=== PATIENT | male | born 1955 | race Two or more races ===

== ENCOUNTER 2016-05-13 13:33 | Emergency (ER) | payer OTHER ==
[~2016-05-13] VITALS: Ht 165.1 cm; Wt 61.2 kg
[~2016-05-13 13:33] MED LIST: CIPRO500 MG PO; IBUPROFEN800 MG ORAL; MECLIZINE HCL25 MG ORAL; NKM; NORCO 5-325 TA1 EACH ORAL; PERCOCET 5-3251 EACH ORAL; PROMETHAZINE-C118 M1 ORAL; PSEUDOEPHEDRINE30 MG PO; TAMIFLU75 MG ORAL; TRAMADOL HCL50 MG ORAL
--- NOTE | 2016-05-13 14:35 | Emergency Room Report ---
History of Present Illness General Chief Complaint: Back Pain-No Injury Source: Patient (KARENKANDIS) Present Illness HPI 61 y/o male c/o rigth sided shoulder and neck pain x 3 days. States he woke up from his sleep with right sided shoulder and neck pain. States pain is worse with movement and better with rest. States he was worked up at [facility] and after imaging and labs was told everything was negative and to f/u with PCP with an Rx for Ibuprofen 600mg which he has taken w/o relief. States pain is currently 7/10 and denies trauma and states he thinks he slept on it wrong.. (KANDIS JONES.Jarek) Allergies: Coded Allergies: No Known Allergies (Unverified , 05/13/13) Patient History Limited by: language barrier Past Medical History: see triage record Past Surgical History: none Reviewed Nursing Documentation: PMH: Agreed, PSxH: Agreed (KANDIS JONES) Nursing Documentation-PMH Past Medical History: No Stated History (KANDIS JONES) Review of Systems All Other Systems: negative except mentioned in HPI (KANDIS JONES.Jarek) Physical Exam Vital Signs Date Time Temp Pulse Resp B/P Pulse Ox O2 Delivery O2 Flow Rate FiO2 05/13/16 14:16 97.9 84 14 124/100 96 Room Air Sp02 EP Interpretation: reviewed, normal General Appearance: no apparent distress, alert, GCS 15, non-toxic Head: normocephalic, atraumatic Eyes: bilateral eye PERRL, bilateral eye normal inspection ENT: hearing grossly normal, normal pharynx, no angioedema, normal voice Neck: full range of motion, supple/symm/no masses Respiratory: chest non-tender, lungs clear, normal breath sounds, speaking full sentences Cardiovascular #1: regular rate, rhythm, no edema Cardiovascular #2: 2+ radial (R), 2+ radial (L) Musculoskeletal: back normal, gait/station normal, normal range of motion, tender - right sided perispinal and shoulder tenderness. Neg tinels, Neg phalens , Neg Neers, Neg sulcus, Neg Biceptial groove Neurologic: alert, oriented x3, responsive, motor strength/tone normal, DTRs symmetric, sensory intact, speech normal Psychiatric: judgement/insight normal, memory normal, mood/affect normal, no suicidal/homicidal ideation Skin: normal color, no rash, warm/dry, well hydrated Lymphatic: no adenopathy (KANDIS JONES P.A.) Medical Decision Making PA Attestation Dr. Gillette is my supervising physician with whom patient management has been discussed with. (KANDIS JONES P.A.) Diagnostic Impression: Primary Impression: Muscle spasm of back Additional Impression: Back pain Qualified Codes: M54.6 - Pain in thoracic spine ER Course Pt. presents to the ED c/o thoracic back pain Ddx considered but are not limited to muscle spasm, trauma, muscle strain Vital signs: are WNL, pt. is afebrile H&PE are most consistent with muscle spasm ORDERS: none required at this time, the diagnosis is clinical ED INTERVENTIONS: none required at this time. DISCHARGE: At this time pt. is stable for d/c to home. Will provide printed patient care instructions, and any necessary prescriptions. Care plan and follow up instructions have been discussed with the patient prior to discharge. (KANDIS JONES P.A.) Last Vital Signs Date Time Temp Pulse Resp B/P Pulse Ox O2 Delivery O2 Flow Rate FiO2 05/13/16 14:16 97.9 84 14 124/100 96 Room Air (KANDIS JONES P.A.) Last Vital Signs Date Time Temp Pulse Resp B/P Pulse Ox O2 Delivery O2 Flow Rate FiO2 05/13/16 14:45 97.9 14 124/100 96 Room Air 05/13/16 14:16 84 (Jacques Gillette M.D.) Disposition: HOME, SELF-CARE Condition: Stable Scripts Methocarbamol* (ROBAXIN-750*) 750 Mg Tablet 750 MG PO TID, #30 TAB 0 Refills Prov: SABHITESH OSUNAEEM P.A. 05/13/16 Acetaminophen With Codeine (T#4) (TYLENOL #4 TAB*) Y Tab 1 TAB ORAL Q8H Y for For Pain, #10 TAB 0 Refills Prov: SABRYTAMEEM P.A. 05/13/16 HITESH JONESEEM P.A. May 13, 2016 14:35 Jacques Gillette M.D. May 17, 2016 06:55
[2016-05-13] MEDS ORDERED: ACETAMINOPHEN-1 EAC2 ORAL (14:37)
[2016-05-13] MEDS ORDERED: ROBAXIN-750750 MG PO (14:37)
[2016-05-13 14:45] VITALS: BP 124/100
== END 2016-05-13 14:45 | disposition home or self-care (01) ==
LOC: EMR 14:39
DX: M62.830 Muscle spasm of back (principal); M54.9 Dorsalgia, unspecified
CPT/HCPCS: 99284

== ENCOUNTER 2016-05-29 14:36 | Emergency (ER) | payer OTHER ==
[~2016-05-29] VITALS: Ht 165.1 cm; Wt 61.2 kg
[~2016-05-29 14:36] MED LIST changes: +ACETAMINOPHEN-1 EAC2 ORAL; +ROBAXIN-750750 MG PO
[2016-05-29 15:10] VITALS: BP 127/78
[2016-05-29 15:25] VITALS: BP 127/78
--- NOTE | 2016-05-29 15:35 | Emergency Room Report ---
History of Present Illness General Chief Complaint: Male Urogenital Problems Source: Patient Present Illness [facility] The patient is a 61-year-old male presenting for erectile dysfunction. The patient states that he has been essentially active with a new female partner but has been unable to obtain an erection. The patient states that he does awake some mornings with interaction and states this may be due to anxiety. The patient denies any pain and denies any other symptoms including dysuria, hematuria, nausea, vomiting, fever, chills, abdominal pain Allergies: Coded Allergies: No Known Allergies (Unverified , 05/13/13) Patient History Past Medical History: see triage record Pertinent Family History: none Reviewed Nursing Documentation: PMH: Agreed, PSxH: Agreed Nursing Documentation-PMH Past Medical History: No History, Except For Review of Systems All Other Systems: negative except mentioned in HPI Physical Exam Vital Signs Date Time Temp Pulse Resp B/P Pulse Ox O2 Delivery O2 Flow Rate FiO2 05/29/16 14:49 97.9 86 18 127/78 98 Room Air Sp02 EP Interpretation: reviewed, normal General Appearance: no apparent distress, alert, GCS 15, non-toxic Head: normocephalic, atraumatic Eyes: bilateral eye PERRL, bilateral eye normal inspection ENT: hearing grossly normal, normal pharynx, no angioedema, normal voice Neck: full range of motion, supple/symm/no masses Respiratory: chest non-tender, lungs clear, normal breath sounds, speaking full sentences Cardiovascular #1: regular rate, rhythm, no edema Gastrointestinal: normal bowel sounds, non tender, soft, non-distended, no guarding, no rebound Genitourinary: normal inspection, no CVA tenderness, penis normal, scrotum normal Musculoskeletal: back normal, gait/station normal, normal range of motion, non- tender Neurologic: alert, oriented x3, responsive, motor strength/tone normal, sensory intact, speech normal Psychiatric: judgement/insight normal, memory normal, mood/affect normal, no suicidal/homicidal ideation Skin: normal color, no rash, warm/dry, well hydrated Lymphatic: no adenopathy Medical Decision Making PA Attestation Dr. Heck is my supervising physician. Patient management was discussed with my supervising physician Diagnostic Impression: Primary Impression: Erectile Dysfunction ER Course The patient is a 61-year-old male presenting for erectile dysfunction. Differential diagnosis considered: Erectile dysfunction, anxiety, depression, medication side effects Physical exam: Vitals within normal limits. No apparent distress. Abdomen soft and nontender. No CVA tenderness. Penis and scrotum unremarkable. The patient is advised that he needs to undergo baseline testing and followup with primary care physician who will be able to have regular followups with the patient. The patient has never taken any erectile dysfunction medications and the patient was advised these medications should not be started by the emergency department. ER precautions are given Last Vital Signs Date Time Temp Pulse Resp B/P Pulse Ox O2 Delivery O2 Flow Rate FiO2 05/29/16 14:49 97.9 86 18 127/78 98 Room Air Disposition: HOME, SELF-CARE Condition: Improved Referrals: NON PHYSICIAN (PCP) Patient Instructions: Erectile Dysfunction Additional Instructions: I discussed my findings with the patient. All questions and concerns have been answered. Treatment and medication compliance have been addressed. I advised the patient that they need to follow up with PMD in 3-5 days. Return to ED if symptoms worsen, new symptoms arise, or if needed for any reason. Patient verbalized understanding of discharge instructions. KAYLEE LARSON May 29, 2016 15:35
== END 2016-05-29 15:27 | disposition home or self-care (01) ==
LOC: EMR 15:14
DX: N52.9 Male erectile dysfunction, unspecified (principal)
CPT/HCPCS: 99282

== ENCOUNTER 2016-08-04 17:26 | Emergency (ER) | payer OTHER ==
[~2016-08-04] VITALS: Ht 165.1 cm; Wt 65.8 kg
[2016-08-04] MEDS ORDERED: AMOXICILLIN500 MG ORAL (18:05)
[2016-08-04 18:27] VITALS: BP 108/70
--- NOTE | 2016-08-09 07:10 | Emergency Room Report ---
History of Present Illness General Chief Complaint: Flu Like Symptoms Source: Patient Present Illness HPI 61-year-old male presents ED for evaluation. States for last 2 days patient has had bodyaches with cough and chills. Cough is productive with greenish sputum. Notes dull aches, 5/10, nonradiating. Denies sick contacts or recent travel. No other aggravating or relieving factors. Denies any other associated symptoms Allergies: Coded Allergies: No Known Allergies (Unverified , 05/13/13) Patient History Past Medical History: none Past Surgical History: none Pertinent Family History: none Social History: Denies: alcohol use, drug use, smoking Immunizations: UTD Reviewed Nursing Documentation: PMH: Agreed, PSxH: Agreed Nursing Documentation-PMH Past Medical History: No Stated History Review of Systems All Other Systems: negative except mentioned in HPI Physical Exam Vital Signs Date Time Temp Pulse Resp B/P Pulse Ox O2 Delivery O2 Flow Rate FiO2 08/04/16 17:41 98.4 65 12 116/75 97 Room Air Sp02 EP Interpretation: reviewed, normal General Appearance: no apparent distress, alert, GCS 15, non-toxic Head: normocephalic, atraumatic Eyes: bilateral eye PERRL, bilateral eye normal inspection ENT: hearing grossly normal, normal pharynx, no angioedema, normal voice Neck: full range of motion, supple/symm/no masses Respiratory: chest non-tender, lungs clear, normal breath sounds, speaking full sentences Cardiovascular #1: regular rate, rhythm, no edema Cardiovascular #2: 2+ carotid (R), 2+ carotid (L), 2+ radial (R), 2+ radial (L) , 2+ dorsalis pedis (R), 2+ dorsalis pedis (L) Gastrointestinal: normal bowel sounds, non tender, soft, non-distended, no guarding, no rebound Rectal: deferred Genitourinary: normal inspection, no CVA tenderness Musculoskeletal: back normal, gait/station normal, normal range of motion, non- tender Neurologic: alert, oriented x3, responsive, motor strength/tone normal, sensory intact, speech normal Psychiatric: judgement/insight normal, memory normal, mood/affect normal, no suicidal/homicidal ideation Reflexes: 3+ bicep (R), 3+ bicep (L), 3+ tricep (R), 3+ tricep (L), 3+ knee (R) , 3+ knee (L) Skin: normal color, no rash, warm/dry, well hydrated Lymphatic: no adenopathy Medical Decision Making Diagnostic Impression: Primary Impression: Atypical pneumonia ER Course Hospital Course 61-year-old male presents to ED complaining of productive cough, body aches and chills Differential diagnoses include: URI, pharyngitis, otitis media, asthma Clinical course Patient placed on stretcher. After initial history, physical exam reveals a young male in no acute distress. Bilateral TM unremarkable. No pharyngeal erythema. No tonsillar exudates. No lymphadenopathy. lungs clear. abdomen soft. Clinical findings consistent with atypical pneumonia. We will treat with antibiotics Diagnosis - atypical pneumonia Stable and discharged home with Rx Amoxicillin. Instructed to followup with PMD. Return to ED if symptoms recur or worsen Last Vital Signs Date Time Temp Pulse Resp B/P Pulse Ox O2 Delivery O2 Flow Rate FiO2 08/04/16 18:27 65 16 108/70 100 Room Air 08/04/16 17:41 98.4 Status: improved Disposition: HOME, SELF-CARE Condition: Stable Scripts Amoxicillin* (AMOXIL*) 500 Mg Capsule 500 MG ORAL THREE TIMES A DAY, #21 CAP Prov: CARMEN MADRID M.D. 08/04/16 Referrals: EMPLOYEE [facility],REFERRIN (PCP) Patient Instructions: Community-Acquired Pneumonia, Adult, [id number] CARMEN MADRID M.D. Aug 09, 2016 07:10
== END 2016-08-04 18:45 | disposition home or self-care (01) ==
LOC: EMR 18:29
DX: J18.9 Pneumonia, unspecified organism (principal)
CPT/HCPCS: 99283

== ENCOUNTER 2016-12-13 14:41 | Emergency (ER) | payer OTHER ==
[~2016-12-13] VITALS: Ht 165.1 cm; Wt 65.8 kg
[~2016-12-13 14:41] MED LIST changes: +AMOXICILLIN500 MG ORAL
[2016-12-13 14:44] VITALS: BP 103/67
--- NOTE | 2016-12-13 14:54 | Emergency Room Report ---
History of Present Illness General Chief Complaint: Pain Source: Patient Present Illness HPI The patient is a 61-year-old male presenting for total body pain. He states that this has been occurring for the past 2 weeks. he was seen by his primary doctor one week prior and states that he had a physical including blood work which was all normal. His doctor prescribed Motrin which mildly helped with the pain. Pain is described as an 8/10 dull ache it is worse with movements. He denies any numbness or tingling. He does admit to burning sensation in the mid chest which occurs after eating or drinking soda. He denies other symptoms including shortness of breath, rash, nausea, vomiting, fever, diarrhea, blurred vision Allergies: Coded Allergies: No Known Allergies (Unverified , 05/13/13) Patient History Past Medical History: see triage record Pertinent Family History: none Reviewed Nursing Documentation: PMH: Agreed, PSxH: Agreed Nursing Documentation-PMH Past Medical History: No History, Except For Review of Systems All Other Systems: negative except mentioned in HPI Physical Exam Vital Signs Date Time Temp Pulse Resp B/P (MAP) Pulse Ox O2 Delivery O2 Flow Rate FiO2 12/13/16 14:44 97.5 75 18 103/67 95 Room Air Sp02 EP Interpretation: reviewed, normal General Appearance: no apparent distress, alert, GCS 15, non-toxic Head: normocephalic, atraumatic Eyes: bilateral eye normal inspection, bilateral eye PERRL ENT: hearing grossly normal, normal pharynx, no angioedema, normal voice Neck: full range of motion, supple/symm/no masses Respiratory: chest non-tender, lungs clear, normal breath sounds, speaking full sentences Musculoskeletal: back normal, gait/station normal, normal range of motion, non- tender Neurologic: alert, oriented x3, responsive, motor strength/tone normal, sensory intact, speech normal Psychiatric: judgement/insight normal, memory normal, mood/affect normal, no suicidal/homicidal ideation, anxious Skin: normal color, no rash, warm/dry, well hydrated Medical Decision Making PA Attestation Dr. Gillette is my supervising physician. Patient management was discussed with my supervising physician ER Course The patient is a 61-year-old male presenting for total body pain Differential diagnosis considered not limited to: Anxiety, chronic pain, arthritis, narcotic seeking behavior, among others Physical exam: The patient is mildly anxious. Otherwise unremarkable. There is diffuse tenderness to palpation over both muscle and bone. No obvious deformity. No ecchymosis. No skin changes. Normal gait The patient is given pain medication and zantac and feels better. CURES report only shows recent prescription for alprazolam. He will be NC'ed home with pain medication and PPI. ER precautions given and he will FU with PMD Last Vital Signs Date Time Temp Pulse Resp B/P (MAP) Pulse Ox O2 Delivery O2 Flow Rate FiO2 12/13/16 14:44 97.5 75 18 103/67 95 Room Air Status: improved Disposition: HOME, SELF-CARE Condition: Improved Scripts Omeprazole (OMEPRAZOLE) 20 Mg Capsule. 20 MG ORAL DAILY, #30 CAP Prov: KAYLEE LARSON 12/13/16 Tramadol Hcl* (ULTRAM*) 50 Mg Tablet 50 MG ORAL Q6H Y for For Pain, #10 TAB 0 Refills Prov: KAYLEE LARSON 12/13/16 KAYLEE LARSON Dec 13, 2016 14:54
[2016-12-13] MEDS ORDERED: Norco 5mg/325mg tab ORAL ONE (15:15)
[2016-12-13] MEDS ORDERED: OMEPRAZOLE20 M2 ORAL (15:35)
[2016-12-13] MEDS ORDERED: TRAMADOL HCL50 MG ORAL (15:35)
[2016-12-13 15:40] VITALS: BP 111/61
== END 2016-12-13 15:40 | disposition home or self-care (01) ==
LOC: EMR 14:57
DX: R52 Pain, unspecified (principal)
CPT/HCPCS: 99284

== ENCOUNTER 2016-12-19 09:20 | Emergency (ER) | payer OTHER ==
[~2016-12-19] VITALS: Ht 165.1 cm; Wt 64.9 kg
[~2016-12-19 09:20] MED LIST changes: +OMEPRAZOLE20 M2 ORAL
[2016-12-19] MEDS ORDERED: DIPHENHYDRAMINE25 M1 ORAL (10:01)
[2016-12-19] MEDS ORDERED: PERMETHRIN60 GM TOPIC (10:01)
[2016-12-19 10:07] VITALS: BP 104/69
[2016-12-19 10:09] VITALS: BP 104/69
--- NOTE | 2016-12-19 16:48 | Emergency Room Report ---
History of Present Illness General Chief Complaint: Skin Rash/Abscess Source: Patient Present Illness HPI 61year-old male presents ED complaining of rash to his hands and feet. Has been there for a "long time". Patient states it is very itchy. Denies any pain. States he had it once before and was treated. Does not know the diagnosis. Denies any sick contacts or recent travel. No other aggravating relieving factors. Denies any other associated symptoms Allergies: Coded Allergies: No Known Allergies (Unverified , 05/13/13) Patient History Past Medical History: none Past Surgical History: none Pertinent Family History: none Social History: Denies: smoking, alcohol use, drug use Immunizations: UTD Reviewed Nursing Documentation: PMH: Agreed, PSxH: Agreed Nursing Documentation-PMH Past Medical History: No History, Except For Review of Systems All Other Systems: negative except mentioned in HPI Physical Exam Vital Signs Date Time Temp Pulse Resp B/P (MAP) Pulse Ox O2 Delivery O2 Flow Rate FiO2 12/19/16 09:40 98.1 95 15 104/69 98 Room Air Sp02 EP Interpretation: reviewed, normal General Appearance: no apparent distress, alert, GCS 15, non-toxic Head: normocephalic Eyes: bilateral eye normal inspection, bilateral eye PERRL ENT: normal ENT inspection Neck: normal inspection Respiratory: normal inspection Cardiovascular #1: normal inspection Gastrointestinal: normal inspection Rectal: deferred Genitourinary: no CVA tenderness Musculoskeletal: normal inspection Neurologic: alert, oriented x3, responsive, motor strength/tone normal, sensory intact, speech normal Psychiatric: normal inspection Skin: rash - multiple linear excoriations noted to hands/feet. noted between fingers and toes Lymphatic: normal inspection Medical Decision Making Diagnostic Impression: Primary Impression: Rash and other nonspecific skin eruption ER Course Hospital Course 61-year-old male presents to ED with rash to hands/feet Differential diagnoses include: Cellulitis, dermatitis, insect bite, abscess Clinical course Patient placed on stretcher. After initial history, physical exam reveals an elderly male in no acute distress. On exam there are multiple linear excoriations noted to the hands/feet. noted especially between fingers/toes. Consistent with scabies Diagnosis - rash stable and discharged to home with prescription for Permethrin. Instructed to followup with PMD. Instructed return to ED if symptoms recur or worsen Last Vital Signs Date Time Temp Pulse Resp B/P (MAP) Pulse Ox O2 Delivery O2 Flow Rate FiO2 12/19/16 10:09 98.1 96 15 104/69 98 Room Air Status: improved Disposition: HOME, SELF-CARE Condition: Stable Scripts Diphenhydramine Hcl* (DIPHENHYDRAMINE HCL*) 25 Mg Capsule 25 MG ORAL Q6H Y for Itching, #30 CAP 0 Refills Prov: CARMEN MADRID M.D. 12/19/16 Permethrin* (ELIMITE*) 60 Gm Cream..g. 1 APPLIC TOPIC ONCE, #60 GM 0 Refills Apply cream from head to toe; leave on for 8-14 hours before washing off with water; may reapply in 1 week if live mites appear. Prov: CARMEN MADRID M.D. 12/19/16 Referrals: EMPLOYEE [facility],REFERRIN (PCP) Patient Instructions: Rash, Contact Precautions, [id number] CARMEN MADRID M.D. Dec 19, 2016 16:48
== END 2016-12-19 10:11 | disposition home or self-care (01) ==
LOC: EMR 09:54
DX: R21 Rash and other nonspecific skin eruption (principal)
CPT/HCPCS: 99284

== ENCOUNTER 2017-04-09 14:39 | Emergency (ER) | payer OTHER ==
[~2017-04-09] VITALS: Ht 165.1 cm; Wt 64.9 kg
[~2017-04-09 14:39] MED LIST changes: +DIPHENHYDRAMINE25 M1 ORAL; +PERMETHRIN60 GM TOPIC
[2017-04-09] MEDS ORDERED: Sodium Chloride 500ML 500 ML IV ONE (14:57)
[2017-04-09] MEDS ORDERED: Aspirin Baby 81mg ORAL ONE (15:00)
[2017-04-09 15:39] LABS: BASOPHILS % (AUTO) 1.6 % (0.0-2.0); EOSINOPHILS % (AUTO) 0.9 % (0.0-3.0); LYMPHOCYTES % (AUTO) 34.5 % (20.0-45.0); MEAN CORPUSCULAR HEMOGLOBIN 31.8 PG (27.0-31.0); MEAN CORPUSCULAR HGB CONC 31.6 G/DL (32.0-36.0); MEAN CORPUSCULAR VOLUME 101 FL (80-99); MEAN PLATELET VOLUME 7.5 FL (6.5-10.1); MONOCYTES % (AUTO) 4.6 % (1.0-10.0); NEUTROPHILS % (AUTO) 58.4 % (45.0-75.0); PLATELET COUNT 156 K/UL (150-450)
[2017-04-09 15:52] LABS: ANION GAP 7 mmol/L (5-15); CALCIUM 7.5 MG/DL (8.5-10.1); CARBON DIOXIDE 29 MMOL/L (21-32); CHLORIDE 104 MMOL/L (98-107); GLOMERULAR FILTRATION RATE > 60 mL/min (>60); POTASSIUM 4.3 MMOL/L (3.5-5.1); SODIUM 140 MMOL/L (136-145)
--- NOTE | 2017-04-09 15:59 | Emergency Room Report ---
History of Present Illness General Chief Complaint: Chest Pain Source: Patient Present Illness HPI Patient presented for chest pain. A gradual onset of symptoms with a past 3 days. The patient had worsened pain with movement. The patient reports being a smoker. He denies any fever. He reports having a nonproductive cough.The pain was intermittent in nature. This was associated with eating primarily. The patient denied any increase in the pain with ambulation. He denies any shortness of breath or leg swelling. Patient had been followed by Dr. Fisher. He denies any current chest pain. Allergies: Coded Allergies: No Known Allergies (Unverified , 05/13/13) Patient History Past Medical History: see triage record Reviewed Nursing Documentation: PMH: Agreed, PSxH: Agreed Nursing Documentation-PMH Past Medical History: No History, Except For Review of Systems All Other Systems: negative except mentioned in HPI Physical Exam Vital Signs Date Time Temp Pulse Resp B/P (MAP) Pulse Ox O2 Delivery O2 Flow Rate FiO2 04/09/17 14:46 98.1 68 18 106/64 94 Room Air Sp02 EP Interpretation: reviewed, normal General Appearance: normal inspection, well appearing, no apparent distress, alert, GCS 15 Head: atraumatic ENT: normal ENT inspection, hearing grossly normal, normal voice Neck: normal inspection, full range of motion, supple, no bony tend Respiratory: normal inspection, lungs clear, normal breath sounds, no respiratory distress, no retraction, no wheezing Cardiovascular #1: regular rate, rhythm, no edema Gastrointestinal: normal inspection, normal bowel sounds, non tender, soft, no guarding, no hernia Genitourinary: no CVA tenderness Musculoskeletal: normal inspection, back normal, normal range of motion Neurologic: normal inspection, alert, oriented x3, responsive, container repairer III-XII nml as tested, speech normal Psychiatric: normal inspection, judgement/insight normal, mood/affect normal Skin: normal inspection, normal color, no rash Medical Decision Making Diagnostic Impression: Primary Impression: Bronchitis Additional Impression: Atypical chest pain ER Course Patient presented for chest pain.Differential diagnosis included but was not limited to acute coronary syndrome, pulmonary embolism, pneumonia, aortic dissection, shingles, pneumothorax, aortic dissection, esophageal rupture, pericarditis. Because of complexity of patient's case laboratory testing and imaging studies were ordered.EKG interpreted by me showed sinus bradycardia without acute ST or T wave changes. The patient was noted to have a negative troponin. Patient was initially given aspirin. He started on some IV fluids. The patient's chest discomfort appears to be somewhat flulike. The patient was advised primary care physician for further evaluation and outpatient stress testing. Labs Test 04/09/17 15:14 White Blood Count 7.0 K/UL (4.8-10.8) Red Blood Count 3.90 M/UL (4.70-6.10) Hemoglobin 12.4 G/DL (14.2-18.0) Hematocrit 39.2 % (42.0-52.0) Mean Corpuscular Volume 101 FL (80-99) Mean Corpuscular Hemoglobin 31.8 PG (27.0-31.0) Mean Corpuscular Hemoglobin Concent 31.6 G/DL (32.0-36.0) Red Cell Distribution Width 11.0 % (11.6-14.8) Platelet Count 156 K/UL (150-450) Mean Platelet Volume 7.5 FL (6.5-10.1) Neutrophils (%) (Auto) 58.4 % (45.0-75.0) Lymphocytes (%) (Auto) 34.5 % (20.0-45.0) Monocytes (%) (Auto) 4.6 % (1.0-10.0) Eosinophils (%) (Auto) 0.9 % (0.0-3.0) Basophils (%) (Auto) 1.6 % (0.0-2.0) Sodium Level 140 MMOL/L (136-145) Potassium Level 4.3 MMOL/L (3.5-5.1) Chloride Level 104 MMOL/L (98-107) Carbon Dioxide Level 29 MMOL/L (21-32) Anion Gap 7 mmol/L (5-15) Blood Urea Nitrogen 18 mg/dL (7-18) Creatinine 1.0 MG/DL (0.55-1.30) Estimat Glomerular Filtration Rate > 60 mL/min (>60) Glucose Level 123 MG/DL (74-106) Calcium Level 7.5 MG/DL (8.5-10.1) Total Bilirubin 2.1 MG/DL (0.2-1.0) Direct Bilirubin 0.3 MG/DL (0.0-0.3) Aspartate Amino Transf (AST/SGOT) 26 U/L (15-37) Alanine Aminotransferase (ALT/SGPT) 41 U/L (12-78) Alkaline Phosphatase 78 U/L (46-116) Total Creatine Kinase 171 U/L (26-308) Creatine Kinase MB 1.9 NG/ML (0.0-3.6) Creatine Kinase MB Relative Index 1.1 Troponin I 0.004 ng/mL (0.000-0.056) Pro-B-Type Natriuretic Peptide 39 pg/mL (0-125) Total Protein 6.7 G/DL (6.4-8.2) Albumin 3.6 G/DL (3.4-5.0) Globulin 3.1 g/dL Albumin/Globulin Ratio 1.2 (1.0-2.7) EKG Diagnostic Results Rate: normal - 60 Rhythm: NSR ST Segments: no acute changes Rhythm Strip Diag. Results EP Interpretation: yes Rhythm: NSR Chest X-Ray Diagnostic Results Chest X-Ray Diagnostic Results : Chest X-Ray Ordered: Yes # of Views/Limited/Complete: 1 View Indication: Chest Pain EP Interpretation: No Interpretation: no consolidation, no effusion, no pneumothorax, no acute cardiopulmonary disease Impression: No acute disease Electronically Signed by: Electronically signed by Dr. Ilan Burgos M.D. Last Vital Signs Date Time Temp Pulse Resp B/P (MAP) Pulse Ox O2 Delivery O2 Flow Rate FiO2 04/09/17 14:55 68 18 Room Air 04/09/17 14:46 98.1 106/64 94 Status: improved Disposition: HOME, SELF-CARE Condition: Stable Scripts Albuterol Sulfate* (ALBUTEROL SULFATE MDI*) 8.5 Gm Hfa.aer.ad 2 PUFF INH Q4H Y for cough/wheezing, #1 EA 0 Refills Prov: Ilan Burgos 04/09/17 Referrals: NON PHYSICIAN (PCP) Ilan Burgos Apr 09, 2017 15:58
[2017-04-09 16:05] LABS: ALANINE AMINOTRANSFERASE 41 U/L (12-78); ALBUMIN/GLOBULIN RATIO 1.2 (1.0-2.7); ASPARTATE AMINO TRANSFERASE 26 U/L (15-37); CKMB 1.9 NG/ML (0.0-3.6); TOTAL PROTEIN 6.7 G/DL (6.4-8.2)
[2017-04-09 16:07] LABS: BILIRUBIN,DIRECT 0.3 MG/DL (0.0-0.3)
[2017-04-09 16:50] VITALS: BP 106/64
[2017-04-09] MEDS ORDERED: ALBUTEROL SULF8.5 GM INH (18:12)
[2017-04-09 18:27] VITALS: BP 118/68
--- NOTE | 2017-04-10 13:01 | Diagnostic Imaging Report ---
Indication: Dyspnea Comparison: 05/13/2013 A single view chest radiograph was obtained. Findings: No definite infiltrate or pulmonary vascular congestion identified. The heart is enlarged. The aorta is mildly enlarged consistent with atherosclerotic vascular disease. The bones are osteopenic. Impression: No acute disease
--- NOTE | 2017-04-24 00:26 | Cardiology Report ---
APPROVED REPORT EKG Measurement Heart [id number] Sinus bradycardia Otherwise normal ECG
== END 2017-04-09 18:27 | disposition home or self-care (01) ==
LOC: EMR 14:55
DX: R07.9 Chest pain, unspecified (principal)
CPT/HCPCS: 36415; 71010; 80053; 82248; 82550; 82553; 83880; 84484; 85025; 93005; 96361; 99284; J7040

== ENCOUNTER 2017-06-14 15:36 | Emergency (ER) | payer MEDICAID, OTHER ==
[~2017-06-14] VITALS: Ht 165.1 cm; Wt 64.9 kg
[~2017-06-14 15:36] MED LIST changes: +ALBUTEROL SULF8.5 GM INH
[2017-06-14] MEDS ORDERED: ASPIRIN81 MG ORAL (16:02)
[2017-06-14] MEDS ORDERED: GABAPENTIN300 MG ORAL (16:02)
--- NOTE | 2017-06-14 16:27 | Diagnostic Imaging Report ---
Indication: Chest pain Technique: One view of the chest Comparison: 04/09/2017 Findings: Better inspiration currently. The heart is enlarged. The lungs and pleural spaces are clear. Findings are unchanged Impression: Cardiomegaly. No acute process
[2017-06-14 16:41] VITALS: BP 117/71
[2017-06-14 16:49] LABS: BASOPHILS % (AUTO) 0.8 % (0.0-2.0); EOSINOPHILS % (AUTO) 0.6 % (0.0-3.0); HEMOGLOBIN 13.2 G/DL (14.2-18.0); LYMPHOCYTES % (AUTO) 26.3 % (20.0-45.0); MEAN CORPUSCULAR VOLUME 97 FL (80-99); NEUTROPHILS % (AUTO) 66.4 % (45.0-75.0); PLATELET COUNT 220 K/UL (150-450); RED BLOOD COUNT 3.91 M/UL (4.70-6.10); RED CELL DISTRIBUTION WIDTH 10.8 % (11.6-14.8); WHITE BLOOD COUNT 8.6 K/UL (4.8-10.8)
[2017-06-14 16:56] LABS: INR 1.1 (0.9-1.1)
[2017-06-14 17:04] LABS: ANION GAP 8 mmol/L (5-15); BLOOD UREA NITROGEN 21 mg/dL (7-18); CALCIUM 8.9 MG/DL (8.5-10.1); CARBON DIOXIDE 27 MMOL/L (21-32); CHLORIDE 103 MMOL/L (98-107); POTASSIUM 3.8 MMOL/L (3.5-5.1); SODIUM 138 MMOL/L (136-145)
[2017-06-14 17:24] LABS: ALANINE AMINOTRANSFERASE 71 U/L (12-78); ALBUMIN 3.6 G/DL (3.4-5.0); ALBUMIN/GLOBULIN RATIO 1.1 (1.0-2.7); ALKALINE PHOSPHATASE 116 U/L (46-116); ASPARTATE AMINO TRANSFERASE 15 U/L (15-37); BILIRUBIN,TOTAL 0.9 MG/DL (0.2-1.0); CKMB 1.6 NG/ML (0.0-3.6); CREATINE KINASE 113 U/L (26-308)
[2017-06-14 18:08] VITALS: BP 121/80
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
[2017-06-14] MEDS ORDERED: LIDODERM700 M1 TOPIC (20:10)
[2017-06-14 20:38] VITALS: BP 121/80
--- NOTE | 2017-06-15 10:08 | Diagnostic Imaging Report ---
Indication: Chest pain Technique: Continuous helical transaxial imaging of the chest was obtained from the thoracic inlet to the upper abdomen after intravenous nonionic contrast administration. Coronal 2-D reformats were also obtained. Automatic Exposure Control was utilized. Total Dose length Product (DLP): 634.[address] Dose Index Volume (CTDIvol): 17.01 mGy Comparison: none Findings: Acute fractures of the left third, fourth and fifth ribs demonstrated. Dislocation of the left medial clavicle head noted and displaced anteriorly relative to the sternum. There is no pneumothorax or pleural effusion. There is no evidence of a lung contusion on this exam. Coarse linear and groundglass opacities noted at the peripheral posterior lung base bilaterally consistent with atelectasis. No mediastinal fluid identified. The heart is unremarkable. Major vessels are unremarkable. No pericardial effusion seen. The visualized part of the upper abdomen demonstrates dilatation of the main pancreatic duct which is only partially visualized on this study. Gallbladder is absent. IMPRESSION: Dislocation of the left medial clavicle head and fractures of the left third through fifth ribs noted anteriorly. No associated pneumothorax or other deeper injury. Posterior basilar atelectasis Prominent main pancreatic duct incidentally noted. This is incompletely imaged. Status post cholecystectomy. [facility] has communicated the preliminary results to the Emergency Department. Their findings are largely concordant with this report. The CT scanner at [facility] is accredited by the [employer] and the scans are performed using dose optimization techniques as appropriate to a performed exam including Automatic Exposure control.
--- NOTE | 2017-06-17 16:14 | Cardiology Report ---
APPROVED REPORT EKG Measurement Heart [id number] Normal sinus rhythm Normal ECG
== END 2017-06-14 20:38 | disposition home or self-care (01) ==
LOC: EMR 16:31
DX: S43.206A Unspecified dislocation of unspecified sternoclavicular joint, initial encounter (principal); S22.42XA Multiple fractures of ribs, left side, initial encounter for closed fracture; V11.4XXA Pedal cycle driver injured in collision with other pedal cycle in traffic accident, initial encounter; Y92.9 Unspecified place or not applicable; Z90.49 Acquired absence of other specified parts of digestive tract
CPT/HCPCS: 36415; 71045; 71260; 80053; 82550; 82553; 83880; 84484; 85025; 85610; 85730; 93005; 99284; Q9967

== ENCOUNTER 2017-07-10 11:40 | Emergency (ER) | payer MEDICAID ==
[~2017-07-10] VITALS: Ht 165.1 cm; Wt 65.8 kg
[~2017-07-10 11:40] MED LIST changes: +ASPIRIN81 MG ORAL; +GABAPENTIN300 MG ORAL; +LIDODERM700 M1 TOPIC
[2017-07-10 12:00] VITALS: BP 128/71
[2017-07-10] MEDS ORDERED: DiphenhydrAMINE 50mg/ml Inj IVP ONE (12:15)
[2017-07-10] MEDS ORDERED: Metoclopramide 10mg/2ml Inj IVP ONE (12:15)
[2017-07-10 12:41] LABS: BASOPHILS % (AUTO) 0.9 % (0.0-2.0); EOSINOPHILS % (AUTO) 0.7 % (0.0-3.0); HEMATOCRIT 40.1 % (42.0-52.0); HEMOGLOBIN 13.4 G/DL (14.2-18.0); LYMPHOCYTES % (AUTO) 27.1 % (20.0-45.0); MEAN CORPUSCULAR VOLUME 97 FL (80-99); MONOCYTES % (AUTO) 9.9 % (1.0-10.0); NEUTROPHILS % (AUTO) 61.4 % (45.0-75.0); PLATELET COUNT 160 K/UL (150-450); RED BLOOD COUNT 4.13 M/UL (4.70-6.10); RED CELL DISTRIBUTION WIDTH 10.7 % (11.6-14.8); WHITE BLOOD COUNT 7.3 K/UL (4.8-10.8)
[2017-07-10 12:50] LABS: ANION GAP 6 mmol/L (5-15); BLOOD UREA NITROGEN 18 mg/dL (7-18); CALCIUM 8.7 MG/DL (8.5-10.1); CARBON DIOXIDE 30 MMOL/L (21-32); CHLORIDE 104 MMOL/L (98-107); CREATININE 0.9 MG/DL (0.55-1.30); POTASSIUM 3.5 MMOL/L (3.5-5.1); SODIUM 140 MMOL/L (136-145)
--- NOTE | 2017-07-10 13:00 | Diagnostic Imaging Report ---
Indication: . A, status post fall Technique: spiral acquisitions obtained through the brain. Angled axial and coronal 5 x 5 mm slices were reconstructed. No IV contrast utilized. Radiation dose was minimized using automated exposure control Total dose length product 1316.27 mGycm. CTDIvol(s) 70.38 mGy Comparison: 09/09/2014 FINDINGS: No acute hemorrhage or edema. No mass effect or midline shift. There is age-related enlargement of the ventricles and extra axial CSF spaces. There is periventricular deep white matter ischemic change. Normal amaya-white differentiation. Visualized orbits are unremarkable. Visualized sinuses are unremarkable. Intact calvarium. There is minimal high right frontal scalp contusion. No other significant interim change IMPRESSION: Chronic and age-related changes. Negative for acute intracranial bleed or mass effect The CT scanner at [facility] is accredited by the [employer] and the scans are performed using protocols designed to limit radiation exposure to as low as reasonably achievable to attain images of sufficient resolution adequate for diagnostic evaluation
[2017-07-10 13:01] LABS: ALANINE AMINOTRANSFERASE 31 U/L (12-78); ALBUMIN 3.5 G/DL (3.4-5.0); ALBUMIN/GLOBULIN RATIO 1.2 (1.0-2.7); ALKALINE PHOSPHATASE 91 U/L (46-116); ASPARTATE AMINO TRANSFERASE 21 U/L (15-37); BILIRUBIN,TOTAL 1.7 MG/DL (0.2-1.0)
[2017-07-10 13:03] LABS: BILIRUBIN,DIRECT 0.2 MG/DL (0.0-0.3)
[2017-07-10] MEDS ORDERED: FIORICET1 EA ORAL (13:17)
[2017-07-10 13:27] VITALS: BP 112/75
[2017-07-10 13:29] VITALS: BP 112/75
--- NOTE | 2017-07-10 14:05 | Emergency Room Report ---
History of Present Illness General Chief Complaint: Headache Source: Patient Present Illness HPI 62-year-old male presents ED plating of headache and dizziness. States approximately one month ago he had a fall with head injury. Was seen at [facility] and subsequently discharged. States symptoms were persisting so he came back in the beginning of June here to be evaluated. ED provider ordered CT chest which showed a sternoclavicular dislocation and multiple rib fractures on the left side. Patient states since then he has had continued headache and dizziness. Denies photophobia. Pain is throbbing, 7 out of 10, nonradiating. Denies neck stiffness. Denies nausea or vomiting. Denies chest pain or shortness of breath. No other aggravating relieving factors. Denies any other associated symptoms Allergies: Coded Allergies: No Known Allergies (Unverified , 05/13/13) Patient History Past Medical History: none Past Surgical History: none Pertinent Family History: none Social History: Denies: smoking, alcohol use, drug use Immunizations: UTD Reviewed Nursing Documentation: PMH: Agreed; PSxH: Agreed Nursing Documentation-PMH Past Medical History: No History, Except For Review of Systems All Other Systems: negative except mentioned in HPI Physical Exam Vital Signs Date Time Temp Pulse Resp B/P (MAP) Pulse Ox O2 Delivery O2 Flow Rate FiO2 07/10/17 11:50 98.3 85 18 119/83 96 Room Air 98.2 Sp02 EP Interpretation: reviewed, normal General Appearance: no apparent distress, alert, GCS 15, non-toxic Head: normocephalic, atraumatic Eyes: bilateral eye normal inspection, bilateral eye PERRL ENT: hearing grossly normal, normal pharynx, no angioedema, normal voice Neck: full range of motion, no meningismus, no bony tend, supple/symm/no masses Respiratory: chest non-tender, lungs clear, normal breath sounds, speaking full sentences Cardiovascular #1: regular rate, rhythm, no edema Cardiovascular #2: 2+ carotid (R), 2+ carotid (L), 2+ radial (R), 2+ radial (L) , 2+ dorsalis pedis (R), 2+ dorsalis pedis (L) Gastrointestinal: normal bowel sounds, non tender, soft, non-distended, no guarding, no rebound Rectal: deferred Genitourinary: normal inspection, no CVA tenderness Musculoskeletal: back normal, gait/station normal, normal range of motion, non- tender Neurologic: alert, oriented x3, responsive, motor strength/tone normal, sensory intact, speech normal Psychiatric: judgement/insight normal, memory normal, mood/affect normal, no suicidal/homicidal ideation Reflexes: 3+ bicep (R), 3+ bicep (L), 3+ tricep (R), 3+ tricep (L), 3+ knee (R) , 3+ knee (L) Skin: normal color, no rash, warm/dry, well hydrated Lymphatic: no adenopathy Medical Decision Making Diagnostic Impression: Primary Impression: Headache Qualified Codes: R51 - Headache ER Course Hospital Course 62-year-old male presents to ED complaining of persistent headaches, dizziness since fall 1 month ago Differential diagnoses include: tension headache, migraine, dehydration, intracranial bleed Clinical course Patient placed on stretcher. After initial history and physical I ordered labs , IV fluids, Reglan, benedryl, CT head Labs reviewed- electrolytes okay, no leukocytosis, hemoglobin/hematocrit stable CT head unremarkable I reviewed EMR. On last visit CT chest was ordered which showed sternoclavicular dislocation and rib fractures on the left side. I conveyed findings to patient to explain his continued pain on the left side Upon reassessment patient states pain has improved. Patient feels better wishes to go home. Given the lack of fever, nuchal rigidity or neurological findings my suspicion for intracranial pathology is low patient be safely discharged to home. i. I feel this is a highly complex case requiring extensive working including EKG/Rhythm strip, Xray/CT/US, Blood/urine lab work, repeat exams while in ED, and administration of strong opiates/narcotics for pain control, admission to hospital or close patient follow up. Diagnosis - headache stable and discharged to home with Rx Fioricet. f/up with PMD. return to ED if symptoms recur/worsen. Labs Test 07/10/17 12:20 White Blood Count 7.3 K/UL (4.8-10.8) Red Blood Count 4.13 M/UL (4.70-6.10) Hemoglobin 13.4 G/DL (14.2-18.0) Hematocrit 40.1 % (42.0-52.0) Mean Corpuscular Volume 97 FL (80-99) Mean Corpuscular Hemoglobin 32.4 PG (27.0-31.0) Mean Corpuscular Hemoglobin Concent 33.3 G/DL (32.0-36.0) Red Cell Distribution Width 10.7 % (11.6-14.8) Platelet Count 160 K/UL (150-450) Mean Platelet Volume 8.8 FL (6.5-10.1) Neutrophils (%) (Auto) 61.4 % (45.0-75.0) Lymphocytes (%) (Auto) 27.1 % (20.0-45.0) Monocytes (%) (Auto) 9.9 % (1.0-10.0) Eosinophils (%) (Auto) 0.7 % (0.0-3.0) Basophils (%) (Auto) 0.9 % (0.0-2.0) Sodium Level 140 MMOL/L (136-145) Potassium Level 3.5 MMOL/L (3.5-5.1) Chloride Level 104 MMOL/L (98-107) Carbon Dioxide Level 30 MMOL/L (21-32) Anion Gap 6 mmol/L (5-15) Blood Urea Nitrogen 18 mg/dL (7-18) Creatinine 0.9 MG/DL (0.55-1.30) Estimat Glomerular Filtration Rate > 60 mL/min (>60) Glucose Level 112 MG/DL (74-106) Calcium Level 8.7 MG/DL (8.5-10.1) Total Bilirubin 1.7 MG/DL (0.2-1.0) Direct Bilirubin 0.2 MG/DL (0.0-0.3) Aspartate Amino Transf (AST/SGOT) 21 U/L (15-37) Alanine Aminotransferase (ALT/SGPT) 31 U/L (12-78) Alkaline Phosphatase 91 U/L (46-116) Total Protein 6.5 G/DL (6.4-8.2) Albumin 3.5 G/DL (3.4-5.0) Globulin 3.0 g/dL Albumin/Globulin Ratio 1.2 (1.0-2.7) CT/MRI/US Diagnostic Results CT/MRI/US Diagnostic Results : Imaging Test Ordered: CT Head Impression no acute process Last Vital Signs Date Time Temp Pulse Resp B/P (MAP) Pulse Ox O2 Delivery O2 Flow Rate FiO2 3/27/18 13:29 98.2 68 20 112/75 98 Room Air 98.2 Status: improved Disposition: HOME, SELF-CARE Condition: Stable Scripts Acetamin/Butalbital/Caffeine* (FIORICET*) 1 Ea Tab 1 TAB ORAL Q6H, #15 TAB 0 Refills Prov: CARMEN MADRID M.D. 07/10/17 Referrals: NOT [facility]OS[facility]/,REFERRING Patient Instructions: Migraine Headache CARMEN MADRID M.D. Jul 10, 2017 14:05
== END 2017-07-10 13:30 | disposition home or self-care (01) ==
LOC: EMR 12:44
DX: R51 Headache (principal); R42 Dizziness and giddiness
CPT/HCPCS: 36415; 70450; 80053; 82248; 85025; 96374; 96375; 99284; J1200; J2765

== ENCOUNTER 2017-07-27 09:52 | Emergency (ER) | payer MEDICAID ==
[~2017-07-27] VITALS: Ht 165.1 cm; Wt 64.9 kg
[~2017-07-27 09:52] MED LIST changes: +FIORICET1 EA ORAL
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
[2017-07-27 10:10] VITALS: BP 114/73
[2017-07-27] MEDS ORDERED: GUAIFENESIN-CO118 M1 ORAL (10:43)
[2017-07-27] MEDS ORDERED: LEVAQUIN750 MG ORAL (10:43)
[2017-07-27] MEDS ORDERED: Levofloxacin 500mg tab ORAL ONE (10:45)
[2017-07-27 11:00] VITALS: BP 112/78
[2017-07-27 11:05] VITALS: BP 112/78
--- NOTE | 2017-07-27 11:30 | Diagnostic Imaging Report ---
Indication: Shortness of breath Technique: One view of the chest Comparison: 06/14/2017 Findings: The heart size is upper limits of normal. The lungs and pleural spaces are clear. The aorta is tortuous. And no significant interim change Impression: No acute process
== END 2017-07-27 11:00 | disposition home or self-care (01) ==
LOC: EMR 10:16
DX: J18.9 Pneumonia, unspecified organism (principal)
CPT/HCPCS: 71045; 99283

== ENCOUNTER 2017-09-12 14:37 | Emergency (ER) | payer MEDICAID ==
[~2017-09-12] VITALS: Ht 172.7 cm; Wt 62.6 kg
[~2017-09-12 14:37] MED LIST changes: +GUAIFENESIN-CO118 M1 ORAL; +LEVAQUIN750 MG ORAL
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
[2017-09-12] MEDS ORDERED: Norco 5mg/325mg tab ORAL ONE (15:30)
[2017-09-12 15:33] VITALS: BP 109/71
--- NOTE | 2017-09-12 16:04 | Diagnostic Imaging Report ---
Indication: Chest pain Comparison: 07/27/2017 A single view chest radiograph was obtained. Findings: The interstitium appears prominent but the much of this is technical in nature. Heart size is borderline but stable. Bones are slightly osteopenic. Surgical clips noted in the right upper quadrant abdomen. IMPRESSION: No acute disease
[2017-09-12] MEDS ORDERED: LIDODERM700 M1 TOPIC (16:08)
[2017-09-12] MEDS ORDERED: NORCO 5-325 TA1 EACH ORAL (16:08)
[2017-09-12 16:18] VITALS: BP 107/70
--- NOTE | 2017-09-12 16:18 | Diagnostic Imaging Report ---
Indication: Left clavicle pain Comparison: None Findings: 2 views of the left clavicle obtained. No acute fractures identified. There is irregularity of the acromioclavicular joint may be due to arthrosis. IMPRESSION: No acute injury
== END 2017-09-12 16:19 | disposition home or self-care (01) ==
LOC: EMR 15:23
DX: R07.89 Other chest pain (principal); G89.29 Other chronic pain
CPT/HCPCS: 71045; 99284

== ENCOUNTER 2018-01-17 11:53 | Emergency (ER) | payer MEDICAID ==
[~2018-01-17] VITALS: Ht 165.1 cm; Wt 64.9 kg
[2018-01-17] MEDS ORDERED: NKM (12:00)
[2018-01-17 12:01] VITALS: BP 113/76
--- NOTE | 2018-01-17 12:27 | Emergency Room Report ---
History of Present Illness General Chief Complaint: Lower Back Pain or Injury Source: Patient Present Illness HPI 62-year-old male presents to the emergency department and he is complaining of 10 out of 10 in severity localized pain to the left paraspinal musculature of the lumbar spine intermittently 2 months. Patient reports he has had 2 falls over the course of the previous 2 months which has exacerbated his symptoms. Patient reports that he was evaluated by his PMD and had MRI performed however he never received the results she was only prescribed Motrin. Patient denies midline neck or back pain denies saddle anesthesia he reports some radiation of his pain down the left leg. Patient denies paresthesias or unilateral weakness. He denies urinary/bowel incontinence or urinary retention. Denies fevers, chills, recent spinal procedures or hx of ca. Allergies: Coded Allergies: No Known Allergies (Unverified , 05/13/13) Patient History Past Medical History: see triage record Past Surgical History: none Pertinent Family History: none Reviewed Nursing Documentation: PMH: Agreed; PSxH: Agreed Nursing Documentation-PMH Hx Cardiac Problems: Yes Review of Systems All Other Systems: negative except mentioned in HPI Physical Exam Vital Signs Date Time Temp Pulse Resp B/P (MAP) Pulse Ox O2 Delivery O2 Flow Rate FiO2 01/17/18 11:57 97.8 78 20 113/76 95 Room Air 97.9 Sp02 EP Interpretation: reviewed, normal General Appearance: no apparent distress, alert, GCS 15, non-toxic Head: normocephalic, atraumatic Eyes: bilateral eye normal inspection, bilateral eye PERRL ENT: hearing grossly normal, normal voice Neck: full range of motion Respiratory: chest non-tender, lungs clear, normal breath sounds, speaking full sentences Cardiovascular #1: regular rate, rhythm Gastrointestinal: non tender, soft Rectal: deferred Genitourinary: normal inspection Musculoskeletal: back normal, gait/station normal, normal range of motion, tender - left sided lumbar paraspinal ttp-mild, FROM with some pain but range is there. no midline spinous process tenderness. no obvious deformities. Neurologic: alert, oriented x3, responsive, motor strength/tone normal, sensory intact, normal gait, speech normal, grossly normal Psychiatric: judgement/insight normal Skin: normal color, no rash, warm/dry, well hydrated Medical Decision Making PA Attestation Dr. hillman is my supervising Physician whom patient management has been discussed with. Diagnostic Impression: Primary Impression: Back pain Qualified Codes: M54.42 - Lumbago with sciatica, left side ER Course 62-year-old male presents to the emergency department and he is complaining of 10 out of 10 in severity localized pain to the left paraspinal musculature of the lumbar spine intermittently 2 months. Patient reports he has had 2 falls over the course of the previous 2 months which has exacerbated his symptoms. Patient reports that he was evaluated by his PMD and had MRI performed however he never received the results she was only prescribed Motrin. Patient denies midline neck or back pain denies saddle anesthesia he reports some radiation of his pain down the left leg. Patient denies paresthesias or unilateral weakness. He denies urinary/bowel incontinence or urinary retention. Denies fevers, chills, recent spinal procedures or hx of ca. Ddx considered: epidural abscess, fracture, sprain/strain, meningitis, spinal chord injury, sciatica, cauda equina, Pyelonephritis, renal calculi just to name a few. Vital signs reviewed and are WNL during ED visit. Pt. is afebrile with no signs of infection No new symptoms, and denies recent trauma. No saddle anesthesia noted, Pt. denies incontinence Neurovascular is intact ROM is limited due to pain * Mild Tenderness to palpation to paraspinal muscles of the left lumbar back with no midline spinous process tenderness. *Pt. describes pain today as moderate and radiates across the lower back and on occasion down the left leg. ORDERS: none warranted at this time. Pt. has already received MRI imaging, physical therapy and evaluation by his PMD. INTERVENTIONS: - 20mg IM Toradol -Robaxin PO -Lidoderm PO D/W Pt. that for further pain management or further diagnostic imaging is it recommended to consult PCP or a Chronic Pain management doctor. DISCHARGE: At this time pt. is stable for d/c to home. Will provide printed patient care instructions, and any necessary prescriptions. Care plan and follow up instructions have been discussed with the patient prior to discharge. Last Vital Signs Date Time Temp Pulse Resp B/P (MAP) Pulse Ox O2 Delivery O2 Flow Rate FiO2 01/17/18 12:01 97.9 78 20 113/76 95 Room Air 97.9 Disposition: HOME, SELF-CARE Condition: Stable Patient Instructions: Lumbosacral Strain Additional Instructions: Take medications as directed. Follow up with a Primary Care Provider in 3-5 days, even if your symptoms have resolved. --Please review list of primary care clinics, if you do not already have a primary care provider Return sooner to ED if new symptoms occur, or current symptoms become worse. Do not drink alcohol, drive, or operate heavy machinery while taking Robaxin ( Muscle Relaxers) as this may cause drowsiness. - Please note that this Emergency Department Report was dictated using [employer] resource tech technology software, occasionally this can lead to erroneous entry secondary to interpretation by the dictation equipment. Leticia Roberson Jan 17, 2018 12:27
[2018-01-17] MEDS ORDERED: Ketorolac 30mg Inj IM ONE (12:30)
[2018-01-17] MEDS ORDERED: Methocarbamol 750mg tab ORAL ONE (12:30)
[2018-01-17] MEDS ORDERED: ROBAXIN-750750 MG PO (12:36)
[2018-01-17] MEDS ORDERED: VOLTAREN100 G1 TP (12:36)
[2018-01-17] MEDS ORDERED: LIDODERM700 M1 TOPIC (12:36)
[2018-01-17 12:57] VITALS: BP 113/76
== END 2018-01-17 12:58 | disposition home or self-care (01) ==
LOC: EMR 12:50
DX: M54.42 Lumbago with sciatica, left side (principal)
CPT/HCPCS: 96372; 99283; J1885

== ENCOUNTER 2018-01-30 13:51 | Emergency (ER) | payer MEDICAID ==
[~2018-01-30] VITALS: Ht 157.5 cm; Wt 64.9 kg
[~2018-01-30 13:51] MED LIST changes: +VOLTAREN100 G1 TP
[2018-01-30 14:01] VITALS: BP 112/77
[2018-01-30] MEDS ORDERED: CLARITIN10 M2 ORAL (14:14)
[2018-01-30] MEDS ORDERED: BACITRACIN-P28.35 GM TP (14:14)
[2018-01-30] MEDS ORDERED: HYDROCORTISONE30 G2 TP (14:14)
--- NOTE | 2018-01-30 14:14 | Emergency Room Report ---
History of Present Illness General Chief Complaint: Skin Rash/Abscess Source: Patient, Medical Record Present Illness HPI 62-year-old male patient presents to ER complaining of itchy rash on his right forearm for the past 3 days. Reports extremely pruritic. Reports has been scratching. Denies he medication for relief symptoms. Denies fever, chest pain , shortness breath, vomiting. denies new soaps or detergents. Reports no new foods.. Denies bleeding. denies pain or burning. also complaining of rash between his toes has been present for a while. Reports pruritic. Denies bleeding. Denies injury or trauma. Allergies: Coded Allergies: No Known Allergies (Unverified , 05/13/13) Patient History Past Medical History: see triage record Reviewed Nursing Documentation: PMH: Agreed; PSxH: Agreed Nursing Documentation-PMH Past Medical History: No History, Except For Hx Cardiac Problems: Yes Hx Neurological Problems: No - Migraine Review of Systems All Other Systems: negative except mentioned in HPI Physical Exam Vital Signs Date Time Temp Pulse Resp B/P (MAP) Pulse Ox O2 Delivery O2 Flow Rate FiO2 01/30/18 13:58 98.0 70 18 112/77 96 Room Air 98.1 Sp02 EP Interpretation: reviewed, normal General Appearance: well appearing, no apparent distress, alert, GCS 15, non- toxic Head: normocephalic, atraumatic Eyes: bilateral eye normal inspection, bilateral eye PERRL ENT: hearing grossly normal, normal pharynx, no angioedema, normal voice, uvula midline, moist mucus membranes Neck: full range of motion Respiratory: lungs clear, normal breath sounds, no rhonchi, no respiratory distress, no accessory muscle use, no wheezing, speaking full sentences Cardiovascular #1: regular rate, rhythm, no edema Cardiovascular #2: 2+ radial (R), 2+ radial (L) Musculoskeletal: back normal, digits/nails normal, gait/station normal, normal range of motion, non-tender Neurologic: alert, oriented x3, responsive, motor strength/tone normal, sensory intact Psychiatric: mood/affect normal Skin: other - 5-6 2-3mm macular papular lesions noted on right dorsum of wrist , excoriations noted, no active bleeding, no surrounding erythema or edema, no tenderness to palpation, no fluctuance or induration, vesicles; bilateral feetin etween toes obvious athletes foot, no moccassin apperance, no erythema or edema, no crusting or bleeding Medical Decision Making PA Attestation Dr. Alvarado is my supervising Physician whom patient management has been discussed with. Diagnostic Impression: Primary Impression: Rash and other nonspecific skin eruption Additional Impression: Athletes foot ER Course Pt. presents to the ED c/o rash. Ddx considered but are not limited to atopic dermatitis, scabies, shingles, hives, urticaria, angiodema, allergic reaction, impetigo. Vital signs: are WNL, pt. is afebrile Ordered medication. ER COURSE patient has small macular papular rash, will treat with topical hydrocortisone due to itching symptoms and bacitracin due to excoriations to prevent infection. Advised patient to apply small amount to affected area. Take Claritin for itching symptoms, taking Benadryl at night, may cause drowsiness.. Provide with hydroxyzine in the ER for itching symptoms. No erythema or edema requiring antibiotics, low suspicion for cellulitis or abscess at this time. Followup with dermatology. bilateral feet shows obvious athlete's foot, advised patient on use of over-the- counter Lamisil for treatment. Follow up with home care associate and/or screening representative. provided with contact information for home care associate and screening representative. ER precautions given. DISCHARGE: -Rx given for Claritin -Rx given for Hydrocortisone. Do not apply to face or skin creases. -Rx given for Bacitracin At this time pt. is stable for d/c to home. Patient resting comfortably, in no acute distress, nontoxic appearinge. Will provide printed patient care instructions, and any necessary prescriptions. Care plan and follow up instructions have been discussed with the patient prior to discharge. Patient provided with list of healthcare clinics to establish primary care physician. Patient instructed to follow-up with primary care provider in 3 - 5 days. Patient questions asked and answered. ER precautions given. Patient instructed to return to ER immediately for any new or worsening of symptoms including but not limited to increasing SOB, persistent fever. - Please note that this Emergency Department Report was dictated using [employer] technology software, occasionally this can lead to erroneous entry secondary to interpretation by the dictation equipment. Last Vital Signs Date Time Temp Pulse Resp B/P (MAP) Pulse Ox O2 Delivery O2 Flow Rate FiO2 01/30/18 14:01 98.1 70 18 112/77 96 Room Air 98.1 Status: improved Disposition: HOME, SELF-CARE Condition: Stable Scripts Hydrocortisone (Hydrocortisone Cream 2.5%) Y Cream.appl 1 APPLIC TP BID, #28 GM Prov: Josue Foster 01/30/18 Loratadine (CLARITIN) 10 Mg Capsule 10 MG ORAL DAILY, #30 CAP Prov: Josue Foster 01/30/18 Bacitracin/Polymyxin B Sulfate (BACITRACIN-POLYMYXIN OINTMENT) 28.35 Gm Oint...g. 1 APPLIC TP BID, #28 GM Prov: Josue Foster 01/30/18 Patient Instructions: Athlete's Foot, [id number], Rash Additional Instructions: Followup with primary care provider in 3 -5 days. Request referral to dermatology as needed. Do not scratch or itch. Apply cool compresses to affected area. Wash all clothes and bedding. Take medications as directed. Do not apply topical steroid medication to face or skin creases. SE Benadryl drowsiness, do not take prior to drinking, driving, operating heavy machinery. Take Claritin during the day and Benadryl at night for itching symptoms. Patient questions asked and answered. ER precautions given, patient instructed to return to ER immediately for any new or worsening of symptoms. [facility] Josue Foster Jan 30, 2018 14:14
[2018-01-30] MEDS ORDERED: HydrOXYzine tab 25mg tab ORAL ONE (14:15)
[2018-01-30 14:26] VITALS: BP 112/77
== END 2018-01-30 14:27 | disposition home or self-care (01) ==
LOC: EMR 14:21
DX: R21 Rash and other nonspecific skin eruption (principal); B35.3 Tinea pedis
CPT/HCPCS: 99283

== ENCOUNTER 2018-06-10 09:35 | Emergency (ER) | payer MEDICAID ==
[~2018-06-10] VITALS: Ht 165.1 cm; Wt 65.8 kg
[~2018-06-10 09:35] MED LIST changes: +BACITRACIN-P28.35 GM TP; +CLARITIN10 M2 ORAL; +HYDROCORTISONE30 G2 TP
[2018-06-10] MEDS ORDERED: PROZAC10 MG ORAL (09:39)
[2018-06-10 09:47] VITALS: BP 138/49
--- NOTE | 2018-06-10 09:50 | NUR ---
ED Nurse Note: pt walked in to ER c/o coughing for a week and chest pain upon coughing. pt aao x4, skin clean and intact. pt calm and cooperative. Addendum: 06/10/18 at 0952 by [email or web address] ED Nurse Note: lungs sound clear but pt sounds congested. normal breathing noted.
--- NOTE | 2018-06-10 10:09 | NUR ---
ED Nurse Note: x-ray taken at bedside.
--- NOTE | 2018-06-10 10:13 | Emergency Room Report ---
History of Present Illness General Chief Complaint: Flu Like Symptoms Source: Patient, Medical Record Present Illness HPI Patient presents with complaints of increased cough over the past 10 days He reports that he had taken some cough syrup and acid medication which improved his symptoms Denies any vomiting denies any diarrhea denies any fevers patient does have history of 3 cigarette smoking per day Denies any recent travel denies any pleurisy Allergies: Coded Allergies: No Known Allergies (Unverified , 05/13/13) Patient History Past Medical History: see triage record Pertinent Family History: none Reviewed Nursing Documentation: PMH: Agreed; PSxH: Agreed Nursing Documentation-PMH Past Medical History: No History, Except For Hx Cardiac Problems: Yes Hx Neurological Problems: No - Migraine Review of Systems All Other Systems: negative except mentioned in HPI Physical Exam Vital Signs Date Time Temp Pulse Resp B/P (MAP) Pulse Ox O2 Delivery O2 Flow Rate FiO2 06/10/18 09:36 97.5 90 18 122/89 98 Room Air Sp02 EP Interpretation: reviewed, normal General Appearance: well appearing, no apparent distress Head: normocephalic, atraumatic Eyes: bilateral eye PERRL, bilateral eye EOMI ENT: hearing grossly normal, normal pharynx, TMs + canals normal, uvula midline Neck: full range of motion, supple, no meningismus, no bony tend Respiratory: lungs clear, normal breath sounds, no rhonchi, no respiratory distress, no retraction, no accessory muscle use Cardiovascular #1: normal peripheral pulses, regular rate, rhythm, no edema, no gallop, no JVD, no murmur Gastrointestinal: normal bowel sounds, non tender, soft, no mass, no organomegaly, non-distended, no guarding, no hernia, no pulsatile mass, no rebound Genitourinary: no CVA tenderness Musculoskeletal: normal inspection Neurologic: oriented x3, responsive, credentialing analyst III-XII nml as tested, motor strength/ tone normal, sensory intact Psychiatric: mood/affect normal Skin: normal color, no rash, warm/dry, palpation normal Lymphatic: normal inspection, no adenopathy Medical Decision Making Diagnostic Impression: Primary Impression: Atypical pneumonia ER Course Given the history exam and presentation multiple differentials in consideration Patient did have imaging obtained given his history of smoking no obvious acute pathology is seen given the productive sputum on his comp located history Patient is diagnosed with atypical pneumonia and will have close outpatient follow-up Chest X-Ray Diagnostic Results Chest X-Ray Diagnostic Results : Chest X-Ray Ordered: Yes # of Views/Limited/Complete: 1 View Indication: Shortness of Breath EP Interpretation: Yes Interpretation: no consolidation, no effusion, no pneumothorax Impression: No acute disease Electronically Signed by: Esau Kendrick DO Last Vital Signs Date Time Temp Pulse Resp B/P (MAP) Pulse Ox O2 Delivery O2 Flow Rate FiO2 06/10/18 09:47 98.6 80 18 138/49 100 Room Air Status: improved Disposition: HOME, SELF-CARE Condition: Improved Scripts Albuterol Sulfate* (ALBUTEROL SULFATE MDI*) 8.5 Gm Hfa.aer.ad 2 PUFF INH Q4H PRN for cough/wheezing, #1 EA 0 Refills Prov: Esau Kendrick DO 06/10/18 Promethazine Hcl (PROMETHAZINE HCL*) 6.25 Mg/5 Ml Syrup 5 ML ORAL Q12HR for 5 Days, #120 ML 0 Refills Prov: Esau Kendrick DO 06/10/18 Levofloxacin* (LEVAQUIN*) 750 Mg Tablet 750 MG ORAL DAILY for 7 Days, TAB Prov: Esau Kendrick DO 06/10/18 Referrals: [facility],REFERRING (PCP) Additional Instructions: Patient is provided with the discharge instructions notified to follow up with primary doctor in the next 2-3 days otherwise return to the er with any worsening symptoms. Please note that this report is being documented using [employer] technology. This can lead to erroneous entry secondary to incorrect interpretation by the dictating instrument. Esau Kendrick DO Jun 10, 2018 10:13
[2018-06-10] MEDS ORDERED: LEVAQUIN750 MG ORAL (11:19)
[2018-06-10] MEDS ORDERED: ALBUTEROL SULF8.5 GM INH (11:19)
[2018-06-10] MEDS ORDERED: PROMETHAZI6.25 MG/1 ORAL (11:19)
[2018-06-10 11:34] VITALS: BP 109/68
--- NOTE | 2018-06-10 11:35 | NUR ---
ER DISCHARGE NOTE: Patient is cleared to be discharged per ERMD, pt is aox4, on room air, with stable vital signs. pt was given dc and prescription instructions, pt was able to verbalize understanding, pt id band removed. pt is able to ambulate with steady gait. pt took all belongings.
--- NOTE | 2018-06-10 11:48 | Diagnostic Imaging Report ---
Indication: Dyspnea Comparison: 09/12/2017 A single view chest radiograph was obtained. Findings: No definite infiltrate or pulmonary vascular congestion identified. The heart is enlarged. The bones are unremarkable. Impression: No acute disease
== END 2018-06-10 11:40 | disposition home or self-care (01) ==
LOC: EMR 09:55
DX: J18.9 Pneumonia, unspecified organism (principal)
CPT/HCPCS: 71045; 99283

== ENCOUNTER 2018-07-31 11:35 | Emergency (ER) | payer MEDICAID ==
[~2018-07-31] VITALS: Ht 165.1 cm; Wt 64.9 kg
[~2018-07-31 11:35] MED LIST changes: +PROMETHAZI6.25 MG/1 ORAL; +PROZAC10 MG ORAL
[2018-07-31 12:05] VITALS: BP 124/84
--- NOTE | 2018-07-31 12:10 | NUR ---
Note sonjaone in EDM - 07/31/18 at 1244 by TOYA ED Nurse Note: Received report from Barrie PECK, pt came in due to chets pain whne coughing started 2 days ago. Pt also c/o chronic headache. Pt is AAO x4, ambulatory and speaks in full sentences. Noted pt with intermittent coughing and congestion.
--- NOTE | 2018-07-31 12:10 | NUR ---
ED Nurse Note: Received report from Barrie PECK, pt came in due to chest pain when coughing started 2 days ago. Pt also c/o chronic headache. Pt is AAO x4, ambulatory and speaks in full sentences. Noted pt with intermittent coughing and congestion.
--- NOTE | 2018-07-31 12:24 | NUR ---
ED Nurse Note: soil technologist at the bed side for CXR.
--- NOTE | 2018-07-31 12:37 | Diagnostic Imaging Report ---
Indication: Chest pain Technique: XRAY Chest 1v Comparison: 06/10/2018 Findings: Stable mild cardiomegaly. Mediastinal contours are sharp. There is no focal airspace consolidation, pleural effusion, pneumothorax or evidence to suggest pulmonary edema. No acute osseous abnormality identified. Surgical clips noted in the right upper quadrant, likely prior cholecystectomy. Impression: No radiographic evidence of acute cardiopulmonary disease.
--- NOTE | 2018-07-31 12:41 | NUR ---
ED Nurse Note: Patient taken to CT.
--- NOTE | 2018-07-31 12:41 | NUR ---
ED Nurse Note: Blood and urine specimen sent.
--- NOTE | 2018-07-31 12:47 | NUR ---
ED Nurse Note: Patient came back from CT. Attached to monitoring analyst. VSS.
[2018-07-31 12:54] LABS: BASOPHILS % (AUTO) 1.1 % (0.0-2.0); LYMPHOCYTES % (AUTO) 14.1 % (20.0-45.0); MEAN CORPUSCULAR VOLUME 96 FL (80-99); MONOCYTES % (AUTO) 6.6 % (1.0-10.0); NEUTROPHILS % (AUTO) 77.3 % (45.0-75.0); PLATELET COUNT 167 K/UL (150-450); RED BLOOD COUNT 4.67 M/UL (4.70-6.10); RED CELL DISTRIBUTION WIDTH 10.9 % (11.6-14.8); WHITE BLOOD COUNT 11.4 K/UL (4.8-10.8)
[2018-07-31 12:58] LABS: APPEARANCE,URINE CLEAR; BILIRUBIN, URINE NEGATIVE (NEGATIVE); GLUCOSE, URINE (UA) NEGATIVE (NEGATIVE); KETONES,URINE NEGATIVE (NEGATIVE); LEUKOCYTE ESTERASE ,URINE 1+ (NEGATIVE); NITRITE,URINE NEGATIVE (NEGATIVE); PH,URINE 7 (4.5-8.0); PROTEIN,URINE NEGATIVE (NEGATIVE); UROBILINOGEN,URINE 1 MG/DL (0.0-1.0)
[2018-07-31 12:59] LABS: COLOR,URINE YELLOW
--- NOTE | 2018-07-31 13:00 | Diagnostic Imaging Report ---
Indication: Headache Technique: Continuous helical CT scanning of the head was performed utilizing automated exposure control without intravenous contrast material. Axial and coronal reconstructions were obtained. Comparison: 07/10/2017 CT dose: Total DLP 1396.47 mGycm; CTDI vol 70.38 mGy Findings: There is no acute intracranial hemorrhage, mass effect or cortical edema. There is no shift of midline structures. Powers-white differentiation appears preserved. The ventricles, cisterns and sulci are mildly prominent consistent with mild age-related atrophy. Size and configuration of the ventricles is stable compared to the prior exam. Very mild periventricular hypoattenuation is seen, a nonspecific finding. Visualized mastoid air cells and paranasal sinuses are unremarkable. No acute skull fracture identified. IMPRESSION: No evidence of acute intracranial hemorrhage, mass effect or cortical edema. MRI may be obtained for more sensitive evaluation as clinically indicated. Mild atrophy and mild nonspecific periventricular hypoattenuation suggestive of chronic ischemic microvascular changes. The CT scanner at [facility] is accredited by the [employer] and the scans are performed using protocols designed to limit radiation exposure to as low as reasonably achievable to attain images of sufficient resolution adequate for diagnostic evaluation.
[2018-07-31 13:10] LABS: ANION GAP 9 mmol/L (5-15); BLOOD UREA NITROGEN 16 mg/dL (7-18); CALCIUM 8.9 MG/DL (8.5-10.1); CARBON DIOXIDE 28 MMOL/L (21-32); CHLORIDE 105 MMOL/L (98-107); CREATININE 0.9 MG/DL (0.55-1.30); POTASSIUM 4.5 MMOL/L (3.5-5.1); SODIUM 142 MMOL/L (136-145)
[2018-07-31] MEDS ORDERED: Albuterol ud Inhalation HHN ONE (13:15)
--- NOTE | 2018-07-31 13:24 | NUR ---
ED Nurse Note: Second PT/PTT specimen sent.
[2018-07-31 13:25] LABS: ALANINE AMINOTRANSFERASE 30 U/L (12-78); ALBUMIN 3.9 G/DL (3.4-5.0); ALBUMIN/GLOBULIN RATIO 1.1 (1.0-2.7); ALKALINE PHOSPHATASE 85 U/L (46-116); ASPARTATE AMINO TRANSFERASE 28 U/L (15-37); BILIRUBIN,TOTAL 1.6 MG/DL (0.2-1.0); CKMB 1.3 NG/ML (0.0-3.6); CREATINE KINASE 165 U/L (26-308)
[2018-07-31 13:28] LABS: BILIRUBIN,DIRECT 0.2 MG/DL (0.0-0.3)
[2018-07-31 13:45] LABS: INR 1.1 (0.9-1.1)
--- NOTE | 2018-07-31 14:29 | Emergency Room Report ---
History of Present Illness General Chief Complaint: Headache Source: Patient Present Illness HPI This patient complains of recurrent coughing and shortness of breath. He also complains of intermittent chest pain while he coughs. He states that he has also had a headache. The patient does smoke tobacco. He also complains of fatigue. He denies fever or chills. He denies sputum production. He states he has an inhaler and a nebulizer machine at home. He denies neck pain or weakness. He denies tingling or numbness. He has no other complaints. Allergies: Coded Allergies: No Known Allergies (Unverified , 05/13/13) Patient History Past Medical History: see triage record, asthma, migraines Social History: Reports: smoking, alcohol use; Denies: drug use Reviewed Nursing Documentation: PMH: Agreed; PSxH: Agreed Nursing Documentation-PMH Hx Cardiac Problems: No - ABD SURGERY UNABLE TO STATE WHY Hx Neurological Problems: No - Migraine Review of Systems All Other Systems: negative except mentioned in HPI Physical Exam Vital Signs Date Time Temp Pulse Resp B/P (MAP) Pulse Ox O2 Delivery O2 Flow Rate FiO2 07/31/18 11:43 98.4 95 18 121/81 94 Room Air 07/31/18 13:10 21 Sp02 EP Interpretation: reviewed, normal General Appearance: no apparent distress, alert, GCS 15, non-toxic Head: normocephalic, atraumatic Eyes: bilateral eye normal inspection, bilateral eye PERRL ENT: hearing grossly normal, normal pharynx, no angioedema, normal voice Neck: full range of motion, supple/symm/no masses Respiratory: chest non-tender, lungs clear, normal breath sounds, no respiratory distress, no retraction, no accessory muscle use, speaking full sentences Cardiovascular #1: regular rate, rhythm, no edema Gastrointestinal: normal bowel sounds, non tender, soft, non-distended, no guarding, no rebound Rectal: deferred Musculoskeletal: back normal, gait/station normal, normal range of motion, non- tender Neurologic: alert, oriented x3, responsive, motor strength/tone normal, sensory intact, speech normal Psychiatric: judgement/insight normal, memory normal, mood/affect normal, no suicidal/homicidal ideation Skin: normal color, no rash, warm/dry, well hydrated Medical Decision Making Diagnostic Impression: Primary Impression: COPD exacerbation Additional Impression: Bronchitis ER Course This patient has a clinical presentation consistent with mild COPD exacerbation. Patient has a history of COPD and has repetitive coughing on physical exam. The patient was given albuterol treatment. The patient had significant improvement in subjective shortness of breath. I suspect this patient has chronic bronchitis related to tobacco use. I will also treat the patient with a course of antibiotics as this has been shown to improve the course of an COPD exacerbation. The patient was given close return precautions and followup instructions. Laboratory Tests Test 07/31/18 12:20 07/31/18 13:12 White Blood Count 11.4 K/UL (4.8-10.8) H Red Blood Count 4.67 M/UL (4.70-6.10) L Hemoglobin 15.0 G/DL (14.2-18.0) Hematocrit 45.0 % (42.0-52.0) Mean Corpuscular Volume 96 FL (80-99) Mean Corpuscular Hemoglobin 32.1 PG (27.0-31.0) H Mean Corpuscular Hemoglobin Concent 33.3 G/DL (32.0-36.0) Red Cell Distribution Width 10.9 % (11.6-14.8) L Platelet Count 167 K/UL (150-450) Mean Platelet Volume 8.9 FL (6.5-10.1) Neutrophils (%) (Auto) 77.3 % (45.0-75.0) H Lymphocytes (%) (Auto) 14.1 % (20.0-45.0) L Monocytes (%) (Auto) 6.6 % (1.0-10.0) Eosinophils (%) (Auto) 1.0 % (0.0-3.0) Basophils (%) (Auto) 1.1 % (0.0-2.0) Urine Color Yellow Urine Appearance Clear Urine pH 7 (4.5-8.0) Urine Specific [place] 1.010 (1.005-1.035) Urine Protein Negative (NEGATIVE) Urine Glucose (UA) Negative (NEGATIVE) Urine Ketones Negative (NEGATIVE) Urine Blood 1+ (NEGATIVE) H Urine Nitrite Negative (NEGATIVE) Urine Bilirubin Negative (NEGATIVE) Urine Urobilinogen 1 MG/DL (0.0-1.0) H Urine Leukocyte Esterase 1+ (NEGATIVE) H Urine RBC 0-2 /HPF (0 - 0) H Urine WBC 0-2 /HPF (0 - 0) Urine Squamous Epithelial Cells Occasional /LPF Urine Bacteria Occasional /HPF (NONE) Sodium Level 142 MMOL/L (136-145) Potassium Level 4.5 MMOL/L (3.5-5.1) Chloride Level 105 MMOL/L (98-107) Carbon Dioxide Level 28 MMOL/L (21-32) Anion Gap 9 mmol/L (5-15) Blood Urea Nitrogen 16 mg/dL (7-18) Creatinine 0.9 MG/DL (0.55-1.30) Estimate Glomerular Filtration Rate > 60 mL/min (>60) Glucose Level 83 MG/DL (74-106) Calcium Level 8.9 MG/DL (8.5-10.1) Total Bilirubin 1.6 MG/DL (0.2-1.0) H Direct Bilirubin 0.2 MG/DL (0.0-0.3) Aspartate Amino Transferase (AST) 28 U/L (15-37) Alanine Aminotransferase (ALT) 30 U/L (12-78) Alkaline Phosphatase 85 U/L (46-116) Total Creatine Kinase 165 U/L (26-308) Creatine Kinase MB 1.3 NG/ML (0.0-3.6) Creatine Kinase MB Relative Index 0.7 Troponin I 0.017 ng/mL (0.000-0.056) Pro-B-Type Natriuretic Peptide 24 pg/mL (0-125) Total Protein 7.4 G/DL (6.4-8.2) Albumin 3.9 G/DL (3.4-5.0) Globulin 3.5 g/dL Albumin/Globulin Ratio 1.1 (1.0-2.7) Lipase 207 U/L (73-393) Prothrombin Time 12.0 SEC (9.30-11.50) H Prothrombin Time INR 1.1 (0.9-1.1) PTT 26 SEC (23-33) EKG Diagnostic Results Rate: normal Rhythm: NSR ST Segments: no acute changes Rhythm Strip Diag. Results EP Interpretation: yes Rate: 70's Rhythm: NSR, no PVC's, no ectopy Chest X-Ray Diagnostic Results Chest X-Ray Diagnostic Results : Chest X-Ray Ordered: Yes # of Views/Limited/Complete: 1 View Indication: Other - cough EP Interpretation: Yes Interpretation: no consolidation, no effusion, no pneumothorax, no acute cardiopulmonary disease Impression: No acute disease Electronically Signed by: Mary Heck DO CT/MRI/US Diagnostic Results CT/MRI/US Diagnostic Results : Imaging Test Ordered: CT head Impression No acute findings. Specifically no intracranial bleed, mass effect or edema. See official report. Last Vital Signs Date Time Temp Pulse Resp B/P (MAP) Pulse Ox O2 Delivery O2 Flow Rate FiO2 07/31/18 13:17 72 18 100 Room Air 21 07/31/18 12:05 98.2 124/84 Status: improved Disposition: HOME, SELF-CARE Condition: Improved Referrals: [facility],REFERRING (PCP) Mary Heck DO Jul 31, 2018 14:29
[2018-07-31] MEDS ORDERED: PREDNISONE20 MG ORAL (14:32)
[2018-07-31] MEDS ORDERED: ZITHROMAX250 MG ORAL (14:32)
[2018-07-31 14:35] VITALS: BP 116/61
--- NOTE | 2018-07-31 14:35 | NUR ---
ER DISCHARGE NOTE: Patient is cleared to be discharged per ERMD, pt is aox4, on room air, with stable vital signs. pt was given dc and prescription instructions, pt was able to verbalize understanding, pt id band and iv site removed without complications. pt is able to ambulate with steady gait. pt took all belongings.
== END 2018-07-31 13:13 | disposition home or self-care (01) ==
LOC: EMR 12:14
DX: J44.1 Chronic obstructive pulmonary disease with (acute) exacerbation (principal); J20.9 Acute bronchitis, unspecified; J44.0 Chronic obstructive pulmonary disease with (acute) lower respiratory infection; R51 Headache; F17.200 Nicotine dependence, unspecified, uncomplicated; R53.81 Other malaise
CPT/HCPCS: 36415; 70450; 71045; 80053; 81003; 82248; 82550; 82553; 83690; 83880; 84484; 85025; 85610; 85730; 87040; 93005; 94640; 94664; 99284

== ENCOUNTER 2019-02-05 17:54 | Emergency (ER) | payer MEDICAID ==
[~2019-02-05] VITALS: Ht 165.1 cm; Wt 64.9 kg
[~2019-02-05 17:54] MED LIST changes: +PREDNISONE20 MG ORAL; +ZITHROMAX250 MG ORAL
[2019-02-05 17:58] VITALS: BP 123/78
--- NOTE | 2019-02-05 18:08 | NUR ---
ED Nurse Note: PT WALKED IN TO ER C/O MULTIPLE ITCHY "BUG BITES" ALL OVER BODY X 2 DAYS AGO. AAO X,4 AND AMBULATORY.
--- NOTE | 2019-02-05 18:32 | Emergency Room Report ---
History of Present Illness General Chief Complaint: Skin Rash/Abscess Source: Patient Present Illness HPI 63 YO male presents to the ED c/o itchy insect bites to the extremities x2 days. Patient denies pain. Patient reports erythema, swelling and warmth. Patient reports one on each lower extremity and one on each upper extremity. Pt. denies fevers, chills or swollen tender lymph nodes. Denies lesions/rashes elsewhere on the body. Denies new medications or body washes or creams. Denies swelling of the lips, tongue , throat or airway. Denies wheezing, or shortness of breath. Denies recent travel, recent illness or ill contacts. denies blisters, oral lesions, or sloughing of the skin Allergies: Coded Allergies: No Known Allergies (Unverified , 05/13/13) Patient History Past Medical History: see triage record Past Surgical History: none Pertinent Family History: none Reviewed Nursing Documentation: PMH: Agreed; PSxH: Agreed Nursing Documentation-PMH Past Medical History: No Stated History Hx Cardiac Problems: No - ABD SURGERY UNABLE TO STATE WHY Hx Neurological Problems: No - Migraine Review of Systems All Other Systems: negative except mentioned in HPI Physical Exam Vital Signs Date Time Temp Pulse Resp B/P (MAP) Pulse Ox O2 Delivery O2 Flow Rate FiO2 02/05/19 17:58 99.0 78 13 123/78 98 Room Air Sp02 EP Interpretation: reviewed, normal General Appearance: no apparent distress, alert, GCS 15, non-toxic Head: normocephalic, atraumatic Eyes: bilateral eye normal inspection, bilateral eye PERRL ENT: hearing grossly normal, normal pharynx, no angioedema, normal voice Neck: full range of motion Respiratory: lungs clear, normal breath sounds, no wheezing, speaking full sentences Cardiovascular #1: regular rate, rhythm, normal capillary refill Musculoskeletal: gait/station normal, normal range of motion, non-tender Neurologic: alert, oriented x3, responsive, motor strength/tone normal, sensory intact, speech normal, grossly normal Psychiatric: judgement/insight normal Skin: rash - several 1cm erythematous, indurated and warm papules with localized reaction. the lesion on the right medial calf has moderate erythema and warmth. No blisters or vessicles. Lymphatic: no adenopathy Medical Decision Making PA Attestation Dr. Alvarado is my supervising Physician whom patient management has been discussed with. Diagnostic Impression: Primary Impression: Insect bites of multiple sites, infected ER Course 63 YO male presents to the ED c/o itchy insect bites to the extremities x2 days. Patient denies pain. Patient reports erythema, swelling and warmth. Patient reports one on each lower extremity and one on each upper extremity. Pt. denies fevers, chills or swollen tender lymph nodes. Denies lesions/rashes elsewhere on the body. Denies new medications or body washes or creams. Denies swelling of the lips, tongue , throat or airway. Denies wheezing, or shortness of breath. Denies recent travel, recent illness or ill contacts. denies blisters, oral lesions, or sloughing of the skin Ddx considered but are not limited to cellulitis, scabies, insect bites, tic bites, spider bites, contact dermatitis, Drug reaction, allergic reaction, fungal infection, lice. Vital signs: are WNL, pt. is afebrile H&PE are most consistent with Insect bites of multiple sites, localized reactions, and mild cellulitis ORDERS: none required at this time, the diagnosis is clinical ED INTERVENTIONS: None required at this time. DISCHARGE: At this time pt. is stable for d/c to home. Will provide printed patient care instructions, and any necessary prescriptions. Care plan and follow up instructions have been discussed with the patient prior to discharge. Last Vital Signs Date Time Temp Pulse Resp B/P (MAP) Pulse Ox O2 Delivery O2 Flow Rate FiO2 02/05/19 17:58 99.0 77 13 123/78 (93) 98 Room Air Disposition: HOME, SELF-CARE Condition: Stable Scripts No Active Prescriptions or Reported Meds Patient Instructions: Bedbugs, [id number], Insect Bite, [id number] Additional Instructions: Take medications as directed. Do not drink alcohol, drive, or operate heavy machinery while taking Benadryl as this may cause drowsiness. Follow up with a Primary Care Provider in 3-5 days, even if your symptoms have resolved. --Please review list of primary care clinics, if you do not already have a primary care provider Return sooner to ED if new symptoms occur, or current symptoms become worse. - Please note that this Emergency Department Report was dictated using [employer] grinder technology software, occasionally this can lead to erroneous entry secondary to interpretation by the dictation equipment. Leticia Roberson Feb 05, 2019 18:32
[2019-02-05] MEDS ORDERED: ALLERGY25 MG PO (18:34)
[2019-02-05] MEDS ORDERED: ANTI-ITCH28 G1 TP (18:34)
[2019-02-05] MEDS ORDERED: CEPHALEXIN500 MG ORAL (18:34)
[2019-02-05 18:44] VITALS: BP 134/70
--- NOTE | 2019-02-05 18:44 | NUR ---
ER DISCHARGE NOTE: Patient is cleared to be discharged per PA, pt is aox4, on room air, with stable vital signs. pt was given dc and prescription instructions, pt was able to verbalize understanding, pt id band removed. pt is able to ambulate with steady gait. pt took all belongings.
== END 2019-02-05 18:44 | disposition home or self-care (01) ==
LOC: EMR 18:30
DX: S40.862A Insect bite (nonvenomous) of left upper arm, initial encounter (principal); S40.861A Insect bite (nonvenomous) of right upper arm, initial encounter; S80.862A Insect bite (nonvenomous), left lower leg, initial encounter; S80.861A Insect bite (nonvenomous), right lower leg, initial encounter; L08.9 Local infection of the skin and subcutaneous tissue, unspecified; W57.XXXA Bitten or stung by nonvenomous insect and other nonvenomous arthropods, initial encounter; Y92.9 Unspecified place or not applicable
CPT/HCPCS: 99282

== ENCOUNTER 2019-03-20 13:47 | Emergency (ER) | payer MEDICAID ==
[~2019-03-20] VITALS: Ht 165.1 cm; Wt 65.8 kg
[~2019-03-20 13:47] MED LIST changes: +ALLERGY25 MG PO; +ANTI-ITCH28 G1 TP; +CEPHALEXIN500 MG ORAL
[2019-03-20] MEDS ORDERED: ASPIR 8181 MG ORAL (13:58)
[2019-03-20 14:00] VITALS: BP 121/78
--- NOTE | 2019-03-20 14:22 | NUR ---
ED Nurse Note: Patient arrived to ED from home complaining of cough, chest, and nose congestion x 2 days. Patient afebrile, no s/s of acute distress.
[2019-03-20] MEDS ORDERED: Ipratropium 0.02% Inh Soln 2.5ml UD HHN ONE (14:45)
[2019-03-20] MEDS ORDERED: Albuterol ud Inhalation HHN ONE (14:45)
--- NOTE | 2019-03-20 15:15 | Diagnostic Imaging Report ---
Indication: Cough Technique: One view of the chest Comparison: 07/31/2018 Findings: The heart size is upper limits normal. The lungs and pleural spaces are clear. Cholecystectomy clips are again demonstrated. There is no significant interim change Impression: No acute process
[2019-03-20] MEDS ORDERED: ALBUTEROL SULF8.5 GM INH (15:51)
[2019-03-20] MEDS ORDERED: PREDNISONE50 MG ORAL (15:51)
[2019-03-20] MEDS ORDERED: ZITHROMAX250 MG ORAL (15:51)
--- NOTE | 2019-03-20 15:52 | Emergency Room Report ---
History of Present Illness General Chief Complaint: Upper Respiratory Illness Source: Patient Present Illness HPI 63-year-old male history of smoking, presents with cough, congestion, subjective fever/chills, x2 days no aggravating leaving factors severity is moderate, constant, patient does endorse some wheezing and shortness of breath, patient presents for evaluation Allergies: Coded Allergies: No Known Allergies (Unverified , 05/13/13) Patient History Past Medical History: see triage record Social History: Reports: smoking Reviewed Nursing Documentation: PMH: Agreed; PSxH: Agreed Nursing Documentation-PMH Past Medical History: No History, Except For Hx Cardiac Problems: No - ABD SURGERY UNABLE TO STATE WHY Hx Hypertension: Yes Hx Neurological Problems: No - Migraine Review of Systems All Other Systems: negative except mentioned in HPI Physical Exam Vital Signs Date Time Temp Pulse Resp B/P (MAP) Pulse Ox O2 Delivery O2 Flow Rate FiO2 03/20/19 13:54 98.2 89 16 121/78 (92) 95 Room Air 03/20/19 15:17 10.0 03/20/19 15:17 21 Sp02 EP Interpretation: reviewed, normal General Appearance: well appearing, no apparent distress, alert Head: normocephalic, atraumatic Eyes: bilateral eye PERRL, bilateral eye EOMI ENT: uvula midline, moist mucus membranes, nasal congestion Neck: supple, thyroid normal, supple/symm/no masses Respiratory: no respiratory distress, no retraction, no accessory muscle use, decreased breath sounds, wheezing Cardiovascular #1: normal peripheral pulses, regular rate, rhythm, no edema, no gallop, no murmur Gastrointestinal: non tender, soft, no guarding, no rebound Musculoskeletal: normal inspection Neurologic: alert, oriented x3 Psychiatric: mood/affect normal Skin: no rash, warm/dry Medical Decision Making Diagnostic Impression: Primary Impression: Upper respiratory infection Qualified Codes: J06.9 - Acute upper respiratory infection, unspecified Additional Impression: COPD exacerbation ER Course 63-year-old male presents with cough, congestion, wheezing differential diagnosis includes URI, bronchitis, COPD exacerbation given his smoking history Patient given prednisone, duo nebs with significant improvement in breathing Disposition home with return precautions Chest X-Ray Diagnostic Results Chest X-Ray Diagnostic Results : Chest X-Ray Ordered: Yes # of Views/Limited/Complete: 1 View Indication: Shortness of Breath EP Interpretation: Yes Interpretation: no consolidation, no effusion, no pneumothorax, no acute cardiopulmonary disease Impression: No acute disease Electronically Signed by: Elliott Garcia MD Last Vital Signs Date Time Temp Pulse Resp B/P (MAP) Pulse Ox O2 Delivery O2 Flow Rate FiO2 03/20/19 15:17 78 18 98 Room Air 21 03/20/19 15:17 10.0 03/20/19 14:00 98.2 121/78 Disposition: HOME, SELF-CARE Condition: Stable Scripts Albuterol Sulfate* (ALBUTEROL SULFATE MDI*) 8.5 Gm Hfa.aer.ad 2 PUFF INH Q4H PRN for Shortness of Breath, #1 EA 0 Refills Prov: Elliott Garcia MD 03/20/19 Azithromycin* (ZITHROMAX*) 250 Mg Tablet 250 MG ORAL DAILY, #6 TAB 0 Refills Take two tables once daily for 1 day, then one tablet once daily for 4 days. Prov: Elliott Garcia MD 03/20/19 Prednisone* (PREDNISONE*) 50 Mg Tablet 50 MG ORAL DAILY, #4 TAB 0 Refills Prov: Elliott Garcia MD 03/20/19 Referrals: [facility] Patient Instructions: Chronic Obstructive Pulmonary Disease Exacerbation, Easy- to-Read, Upper Respiratory Infection, Adult Additional Instructions: The patient was provided with discharge instructions, notified to follow-up with a primary care doctor and or specialist in the next 24-48 hours, and to return to the ED if they have worsening of their symptoms. Please note that this report is being documented using [employer] technology. This can lead to erroneous entry secondary to incorrect interpretation by the dictating instrument. Elliott Garcia MD Mar 20, 2019 15:51
[2019-03-20 15:58] VITALS: BP 120/84
--- NOTE | 2019-03-20 15:58 | NUR ---
ED Nurse Note: Patient cleared for discharge by ER MD, patient given prescriptions and verbalized understanding regarding discharge instructions.
== END 2019-03-20 15:58 | disposition home or self-care (01) ==
LOC: EMR 15:48
DX: J06.9 Acute upper respiratory infection, unspecified (principal); J44.1 Chronic obstructive pulmonary disease with (acute) exacerbation; I10 Essential (primary) hypertension; F17.200 Nicotine dependence, unspecified, uncomplicated
CPT/HCPCS: 71045; 94640; 94664; J7512; Z7502; 99284

== ENCOUNTER → 2019-03-27 | Emergency (ER) | payer MEDICAID ==
[~2019-03-27] VITALS: Ht 165.1 cm; Wt 64.9 kg
[~2019-03-27] MED LIST changes: +ASPIR 8181 MG ORAL; +Albuterol ud Inhalation HHN ONE; +Ipratropium 0.02% Inh Soln 2.5ml UD HHN ONE; +LEVOFLOXACIN500 MG ORAL; +PREDNISONE50 MG ORAL
--- NOTE | 2019-03-27 09:50 | NUR ---
ED Nurse Note: Patient walked into ED from home c/o flu-like symptoms, headache and diffuse chest pain for 1 week. patient is alert awake x4 ambulatory steady gait, breathing unlabored and even, speaking in full sentences.
--- NOTE | 2019-03-27 10:00 | NUR ---
ED Nurse Note: patient on a hospital gown, patient on a desk monitor.
[2019-03-27 10:16] VITALS: BP 127/81
--- NOTE | 2019-03-27 10:16 | NUR ---
ED Nurse Note: RT by the bedside, pt tolerating breathing tx.
[2019-03-27 10:28] LABS: HEMOGLOBIN 14.5 G/DL (14.2-18.0); MEAN CORPUSCULAR VOLUME 95 FL (80-99); PLATELET COUNT 218 K/UL (150-450); RED BLOOD COUNT 4.54 M/UL (4.70-6.10); RED CELL DISTRIBUTION WIDTH 10.6 % (11.6-14.8); WHITE BLOOD COUNT 10.1 K/UL (4.8-10.8)
[2019-03-27 10:32] LABS: ANION GAP 8 mmol/L (5-15); BLOOD UREA NITROGEN 19 mg/dL (7-18); CALCIUM 8.7 MG/DL (8.5-10.1); CARBON DIOXIDE 26 MMOL/L (21-32); CHLORIDE 105 MMOL/L (98-107); CREATININE 0.9 MG/DL (0.55-1.30); POTASSIUM 4.2 MMOL/L (3.5-5.1); SODIUM 139 MMOL/L (136-145)
--- NOTE | 2019-03-27 10:38 | NUR ---
ED Nurse Note: DR RAMIREZ GAVE VERBAL ORDER TO COLLECT FLU SWAB. ORDER CARRIED
[2019-03-27 10:43] LABS: ALANINE AMINOTRANSFERASE 31 U/L (12-78); ALBUMIN 3.8 G/DL (3.4-5.0); ALBUMIN/GLOBULIN RATIO 1.3 (1.0-2.7); ALKALINE PHOSPHATASE 89 U/L (46-116); ASPARTATE AMINO TRANSFERASE 15 U/L (15-37); BILIRUBIN,TOTAL 1.4 MG/DL (0.2-1.0)
[2019-03-27 10:45] LABS: BILIRUBIN,DIRECT 0.2 MG/DL (0.0-0.3)
--- NOTE | 2019-03-27 10:48 | Diagnostic Imaging Report ---
Indication: Chest pain Technique: XRAY Chest 1v Comparison: 03/20/2019 Findings: Heart size and mediastinal contours are within normal limits for AP technique and stable compared to the prior exam. There is no focal airspace consolidation, pneumothorax or pleural effusion. Osseous structures demonstrate no acute abnormality. Cholecystectomy clips again noted in the right upper quadrant. Impression: No radiographic evidence of acute cardiopulmonary disease or significant interval change compared to the prior exam.
--- NOTE | 2019-03-27 10:49 | NUR ---
ED Nurse Note: flu swab sent to lab
--- NOTE | 2019-03-27 13:05 | Emergency Room Report ---
History of Present Illness General Chief Complaint: Flu Like Symptoms Source: Patient Present Illness HPI Patient states that he was seen here 2 weeks ago for similar symptoms. He complains of cough and shortness of breath. He has been using an albuterol inhaler and took the steroids and antibiotics that he was prescribed. He states he continues to feel short of breath and have cough. He denies fever chills. He denies sputum production. Denies headache or neck pain. He has no other complaints. Allergies: Coded Allergies: No Known Allergies (Unverified , 05/13/13) Patient History Past Medical History: see triage record, HTN Social History: Denies: smoking, alcohol use, drug use Reviewed Nursing Documentation: PMH: Agreed; PSxH: Agreed Nursing Documentation-PMH Past Medical History: No History, Except For Hx Cardiac Problems: No - ABD SURGERY UNABLE TO STATE WHY Hx Hypertension: Yes Hx Neurological Problems: No - Migraine Review of Systems All Other Systems: negative except mentioned in HPI Physical Exam Vital Signs Date Time Temp Pulse Resp B/P (MAP) Pulse Ox O2 Delivery O2 Flow Rate FiO2 03/27/19 09:41 98.1 91 20 121/80 (94) 94 Room Air 03/27/19 10:13 21 Sp02 EP Interpretation: reviewed, normal General Appearance: no apparent distress, alert, GCS 15, non-toxic Head: normocephalic, atraumatic Eyes: bilateral eye normal inspection, bilateral eye PERRL ENT: hearing grossly normal, normal pharynx, no angioedema, normal voice Neck: full range of motion, supple/symm/no masses Respiratory: chest non-tender, lungs clear, normal breath sounds, no respiratory distress, no retraction, no accessory muscle use, speaking full sentences Cardiovascular #1: regular rate, rhythm, no edema Gastrointestinal: normal bowel sounds, non tender, soft, non-distended, no guarding, no rebound Rectal: deferred Musculoskeletal: back normal, normal range of motion, gait/station normal, non- tender Neurologic: alert, motor strength/tone normal, oriented x3, sensory intact, responsive, speech normal Psychiatric: judgement/insight normal, memory normal, mood/affect normal, no suicidal/homicidal ideation Skin: no rash, normal color Medical Decision Making Diagnostic Impression: Primary Impression: Bronchitis ER Course I suspect this patient has undiagnosed COPD. The patient had significant improvement in his symptoms with an albuterol and Atrovent nebulizer treatment. The patient was recently on a course of steroids and azithromycin. He returns for the same symptoms. No evidence of pneumonia on chest x-ray. I had plan on admitting this patient so that he could undergo further evaluation by pulmonology, however he adamantly declined. He has an albuterol inhaler at home. They are course of steroids and antibiotics as a precaution. However, I feel that this patient needs to see a casting machine set up operator to undergo full pulmonary evaluation. However, the patient declined and stated that he would return if his symptoms worsen. He was given close return precautions and follow-up instructions. Laboratory Tests Test 03/27/19 10:10 White Blood Count 10.1 K/UL (4.8-10.8) Red Blood Count 4.54 M/UL (4.70-6.10) L Hemoglobin 14.5 G/DL (14.2-18.0) Hematocrit 43.0 % (42.0-52.0) Mean Corpuscular Volume 95 FL (80-99) Mean Corpuscular Hemoglobin 31.9 PG (27.0-31.0) H Mean Corpuscular Hemoglobin Concent 33.7 G/DL (32.0-36.0) Red Cell Distribution Width 10.6 % (11.6-14.8) L Platelet Count 218 K/UL (150-450) Mean Platelet Volume 7.2 FL (6.5-10.1) Neutrophils (%) (Auto) % (45.0-75.0) Lymphocytes (%) (Auto) % (20.0-45.0) Monocytes (%) (Auto) % (1.0-10.0) Eosinophils (%) (Auto) % (0.0-3.0) Basophils (%) (Auto) % (0.0-2.0) Differential Total Cells Counted 100 Neutrophils % (Manual) 87 % (45-75) H Lymphocytes % (Manual) 10 % (20-45) L Monocytes % (Manual) 2 % (1-10) Eosinophils % (Manual) 0 % (0-3) Basophils % (Manual) 1 % (0-2) Band Neutrophils 0 % (0-8) Platelet Estimate Decreased L Platelet Morphology Normal Red Blood Cell Morphology Normal Sodium Level 139 MMOL/L (136-145) Potassium Level 4.2 MMOL/L (3.5-5.1) Chloride Level 105 MMOL/L (98-107) Carbon Dioxide Level 26 MMOL/L (21-32) Anion Gap 8 mmol/L (5-15) Blood Urea Nitrogen 19 mg/dL (7-18) H Creatinine 0.9 MG/DL (0.55-1.30) Estimate Glomerular Filtration Rate > 60 mL/min (>60) Glucose Level 137 MG/DL (74-106) H Calcium Level 8.7 MG/DL (8.5-10.1) Total Bilirubin 1.4 MG/DL (0.2-1.0) H Direct Bilirubin 0.2 MG/DL (0.0-0.3) Aspartate Amino Transferase (AST) 15 U/L (15-37) Alanine Aminotransferase (ALT) 31 U/L (12-78) Alkaline Phosphatase 89 U/L (46-116) Troponin I 0.000 ng/mL (0.000-0.056) Total Protein 6.8 G/DL (6.4-8.2) Albumin 3.8 G/DL (3.4-5.0) Globulin 3.0 g/dL Albumin/Globulin Ratio 1.3 (1.0-2.7) Microbiology Date/Time Source Procedure Growth Status 03/27/19 10:40 Nasal Nares - Final Complete 03/27/19 10:40 Nasal Nares - Final Complete EKG Diagnostic Results Rate: normal Rhythm: NSR ST Segments: no acute changes Rhythm Strip Diag. Results EP Interpretation: yes Rate: 70's Rhythm: NSR, no PVC's, no ectopy Chest X-Ray Diagnostic Results Chest X-Ray Diagnostic Results : Chest X-Ray Ordered: Yes # of Views/Limited/Complete: 1 View Indication: Shortness of Breath EP Interpretation: Yes Interpretation: no consolidation, no effusion, no pneumothorax, no acute cardiopulmonary disease Impression: No acute disease Electronically Signed by: Mary Heck DO Last Vital Signs Date Time Temp Pulse Resp B/P (MAP) Pulse Ox O2 Delivery O2 Flow Rate FiO2 03/27/19 10:25 71 14 Room Air 03/27/19 10:16 98.1 127/81 99 03/27/19 10:13 21 Status: improved Disposition: HOME, SELF-CARE Condition: Improved Referrals: [facility],REFERRING (PCP) Mary Heck DO Mar 27, 2019 13:05
[2019-03-27 14:07] VITALS: BP 127/69
--- NOTE | 2019-03-27 14:08 | NUR ---
ER DISCHARGE NOTE: Patient is cleared to be discharged per ERMWill RAMIREZ, pt is aox4, on room air, with stable vital signs. pt was given dc and prescription instructions, pt was able to verbalize understanding, pt id band and iv site removed without complications. pt is able to ambulate with steady gait. pt took all belongings.
== END | disposition home or self-care (01) ==
LOC: EMR 10:07
DX: J40 Bronchitis, not specified as acute or chronic (principal); I10 Essential (primary) hypertension
CPT/HCPCS: 36415; 71045; 80053; 82248; 84484; 85007; 85025; 86710; 87040; 93005; 96360; J7030; Z7502; 99284

== ENCOUNTER 2019-04-02 15:15 | Emergency (ER) | payer MEDICAID ==
[~2019-04-02] VITALS: Ht 165.1 cm; Wt 64.9 kg
[~2019-04-02 15:15] MED LIST changes: -Albuterol ud Inhalation HHN ONE; -Ipratropium 0.02% Inh Soln 2.5ml UD HHN ONE
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
[2019-04-02] MEDS ORDERED: Tetanus/Diptheria/Pertussis IM ONE (16:00)
[2019-04-02] MEDS ORDERED: Bacitracin Oint UD TOPIC ONE (16:00)
[2019-04-02] MEDS ORDERED: Acetaminophen 500mg (ES) tab ORAL ONE (16:15)
[2019-04-02] MEDS ORDERED: BACITRACIN15 GM TOPIC (16:44)
[2019-04-02] MEDS ORDERED: TYLENOL EXTRA500 MG ORAL (16:44)
[2019-04-02 16:50] VITALS: BP 110/74
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
--- NOTE | 2019-04-02 16:50 | NUR ---
ER DISCHARGE NOTE: Patient is cleared to be discharged per Dr. Butler. Patient is AxO x 4, VSS Patient verbalized understanding of medication and discharge instructions. ID band removed. Patient is able to ambulate with steady gait and took all belongings.
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
--- NOTE | 2019-04-03 18:51 | Diagnostic Imaging Report ---
Indications: Left knee pain Technique: Three views of the knee Comparison: None Findings: No acute fractures. No dislocations. Joint spaces are preserved. No radiopaque foreign body. Normal mineralization. Impression: No acute process
== END 2019-04-02 16:50 | disposition home or self-care (01) ==
LOC: EMR 16:08
DX: S89.92XA Unspecified injury of left lower leg, initial encounter (principal); Z23 Encounter for immunization; V03.99XA Pedestrian with other conveyance injured in collision with car, pick-up truck or van, unspecified whether traffic or nontraffic accident, initial encounter; Y92.9 Unspecified place or not applicable; I10 Essential (primary) hypertension
CPT/HCPCS: 73562; 90471; 90715; Z7502; 99283

== ENCOUNTER 2019-06-18 11:24 | Emergency (ER) | payer MEDICAID ==
[~2019-06-18] VITALS: Ht 165.1 cm; Wt 64.9 kg
[~2019-06-18 11:24] MED LIST changes: +BACITRACIN15 GM TOPIC; +TYLENOL EXTRA500 MG ORAL
[2019-06-18 11:27] VITALS: BP 129/80
--- NOTE | 2019-06-18 11:35 | NUR ---
ED Nurse Note: carlota walked into ED from home c/o nasal/chest congestion, coughing, headache for 3 days. patient denies any fever. patient is alert awake x4 ambulatory, breathing unlabored and even, speaking in full sentences.
[2019-06-18] MEDS ORDERED: Albuterol ud Inhalation HHN ONE (11:45)
[2019-06-18] MEDS ORDERED: ALBUTEROL SULF8.5 GM INH (12:56)
[2019-06-18] MEDS ORDERED: ZITHROMAX250 MG ORAL (12:56)
[2019-06-18] MEDS ORDERED: IBUPROFEN600 MG ORAL (12:58)
[2019-06-18] MEDS ORDERED: PREDNISONE20 MG ORAL (12:58)
[2019-06-18 13:02] VITALS: BP 129/80
--- NOTE | 2019-06-18 13:02 | NUR ---
ER DISCHARGE NOTE: Patient is cleared to be discharged per ERMD DR MCADAMS, pt is aox4, on room air, with stable vital signs. pt was given dc and prescription instructions, pt was able to verbalize understanding, pt id band and removed without complications. pt is able to ambulate with steady gait. pt took all belongings.
--- NOTE | 2019-06-18 13:38 | Emergency Room Report ---
History of Present Illness General Chief Complaint: Flu Like Symptoms Source: Patient Present Illness HPI Patient is a 64-year-old male presents to the ER complaining of flulike symptoms for the past days. Patient complains of generalized headache, body aches, cough with phlegm production which is yellow, chest wall pain when coughing and congestion. Patient states that he had similar symptoms 3 to 4 months ago was given antibiotics and felt better. He has no documented fever at home. He denies chills. He is a current smoker. He denies any recent travel. He denies any abdominal pain, nausea, vomiting, focal weakness or shortness of breath. She did not receive his influenza vaccine this year Allergies: Coded Allergies: No Known Allergies (Unverified , 05/13/13) Patient History Social History: Reports: smoking Reviewed Nursing Documentation: PMH: Agreed; PSxH: Agreed Nursing Documentation-PMH Past Medical History: No History, Except For Hx Cardiac Problems: No - ABD SURGERY UNABLE TO STATE WHY Hx Hypertension: Yes Hx Neurological Problems: No - Migraine Review of Systems All Other Systems: negative except mentioned in HPI Physical Exam Vital Signs Date Time Temp Pulse Resp B/P (MAP) Pulse Ox O2 Delivery O2 Flow Rate FiO2 06/18/19 11:27 98.2 87 18 129/80 (96) 97 Room Air 06/18/19 12:15 21 Sp02 EP Interpretation: reviewed, normal General Appearance: no apparent distress, alert, GCS 15, non-toxic Head: normocephalic, atraumatic Eyes: bilateral eye normal inspection, bilateral eye PERRL ENT: hearing grossly normal, normal pharynx, no angioedema, normal voice Neck: full range of motion, supple/symm/no masses Respiratory: chest non-tender, rhonchi, speaking full sentences, wheezing, expiration Cardiovascular #1: regular rate, rhythm, no edema Cardiovascular #2: 2+ carotid (R), 2+ carotid (L), 2+ radial (R), 2+ radial (L) , 2+ dorsalis pedis (R), 2+ dorsalis pedis (L) Gastrointestinal: normal bowel sounds, non tender, soft, non-distended, no guarding, no rebound, other - Healed midline abdominal surgical incision site Rectal: deferred Genitourinary: normal inspection, no CVA tenderness Musculoskeletal: back normal, normal range of motion, calf tenderness, gait/ station normal, non-tender Neurologic: alert, motor strength/tone normal, oriented x3, sensory intact, responsive, speech normal Psychiatric: judgement/insight normal, memory normal, mood/affect normal, no suicidal/homicidal ideation Lymphatic: no adenopathy Medical Decision Making Diagnostic Impression: Primary Impression: Bronchopneumonia ER Course Patient given nebulizer treatment as well as Motrin. Patient being discharged home with prescription for Z-Nate, albuterol and Motrin. After discussing risks and benefits of further diagnostics, treatment plans, as well as indications for and risks of admission, the patient is agreeable to being discharged home. I have explained that their evaluation and treatment in the emergency department today is an important step towards them achieving better health but that their evaluation today is not intended to replace further evaluation and treatment by a physician in their local clinic. I have explained that while the current findings suggest no immediate life threatening emergency they will require further evaluation and treatment by a physician of their choice in their area. They understand that it will be necessary for them to review the final reports of their ED visit with their clinic physician. We have reviewed indications for return to the Emergency Department. I have explained that additional time may need to pass and/or additional testing as an outpatient may be necessary before a definitive diagnosis can be made. They tell me they are willing to follow up as instructed within the timeframe I recommend. They appear to understand what we discussed. Additionally they understand that if they are unable to be seen by an outpatient physician they are welcome, and in fact should, return to the Emergency Department for a repeat evaluation. The patient is stable at time of discharge. EKG Diagnostic Results EKG Time: 11:51 EP Interpretation: MD Syd Rate: normal Rhythm: NSR ST Segments: no acute changes ASA given to the pt in ED: No Last Vital Signs Date Time Temp Pulse Resp B/P (MAP) Pulse Ox O2 Delivery O2 Flow Rate FiO2 06/18/19 12:17 98.3 06/18/19 12:16 79 18 Room Air 21 06/18/19 12:15 99 95 06/18/19 11:27 129/80 Disposition: HOME, SELF-CARE Condition: Stable Scripts Prednisone* (PREDNISONE*) 20 Mg Tablet 60 MG ORAL DAILY for 5 Days, #5 TAB Prov: Brooke Velarde M.D. 06/18/19 Ibuprofen* (MOTRIN*) 600 Mg Tablet 600 MG ORAL Q8H PRN for For Pain, #30 TAB 0 Refills Prov: Brooke Velarde M.D. 06/18/19 Azithromycin* (ZITHROMAX*) 250 Mg Tablet 250 MG ORAL DAILY, #6 TAB 0 Refills Take two tables once daily for 1 day, then one tablet once daily for 4 days. Prov: Brooke Velarde M.D. 06/18/19 Albuterol Sulfate* (ALBUTEROL SULFATE MDI*) 8.5 Gm Hfa.aer.ad 2 PUFF INH Q4H PRN for cough/wheezing, #1 EA 0 Refills Prov: Brooke Velarde M.D. 06/18/19 Referrals: [facility] Patient Instructions: Acute Bronchitis, [id number] Additional Instructions: Patient discharged in stable condition with outpatient follow-up and strict return precautions Brooke Velarde M.D. Jun 18, 2019 13:38
--- NOTE | 2019-06-18 13:46 | Diagnostic Imaging Report ---
Indication: Dyspnea Comparison: 03/27/2019 A single view chest radiograph was obtained. Findings: No definite infiltrate or pulmonary vascular congestion identified. The heart is enlarged. The aorta is mildly enlarged consistent with atherosclerotic vascular disease. The bones are osteopenic. There are thoracic vertebral enthesophytes at multiple levels. Impression: No acute disease
== END 2019-06-18 13:02 | disposition home or self-care (01) ==
LOC: EMR 12:00
DX: J18.0 Bronchopneumonia, unspecified organism (principal); I10 Essential (primary) hypertension; F17.200 Nicotine dependence, unspecified, uncomplicated
CPT/HCPCS: 71045; 86710; 93005; Z7502; 99284

== ENCOUNTER 2019-07-04 14:08 | Emergency (ER) | payer MEDICAID ==
[~2019-07-04] VITALS: Ht 165.1 cm; Wt 64.9 kg
[2019-07-04 14:08] VITALS: BP 131/78
[~2019-07-04 14:08] MED LIST changes: +IBUPROFEN600 MG ORAL
--- NOTE | 2019-07-04 15:30 | Emergency Room Report ---
History of Present Illness General Chief Complaint: Flu Like Symptoms Source: Patient Present Illness HPI 64-year-old male who is a current daily smoker presents to the emergency department with recurrence of his URI symptoms which he was seen and treated for 3 weeks ago. Patient reports he recently returned from [place] as well. Patient states that he was taking antibiotics and once he finished taking his antibiotics his symptoms returned. Patient describes symptoms of persistent coughing with some mucus in addition to 8 out of 10 severity progressive headaches. Pt. reports hx. of migraines and HTN. Patient denies ever seeing a marine geologist. He states he never followed up with his primary care provider following his previous ER visit. Patient states he continues to smoke while sick. He denies fevers or chills. He denies swelling of the lower extremities. Patient denies nasal congestion or rhinorrhea. He denies neck pain/stiffness or photophobia. Denies CP, Palpitations, LOC, AMS, dizziness, Changes in Vision, Sensation, paresthesias, or a sudden severe headache. COVID-19 risk:Contact w/high r: No COVID-19 risk:Travel to affect: Yes Has patient experienced cline: Yes Coronavirus symptoms experienc: Shortness of Breath, Cough, Runny Nose Allergies: Coded Allergies: No Known Allergies (Unverified , 05/13/13) Patient History Past Medical History: see triage record Past Surgical History: none Pertinent Family History: none Immunizations: UTD Reviewed Nursing Documentation: PMH: Agreed; PSxH: Agreed Nursing Documentation-PMH Past Medical History: No History, Except For Hx Cardiac Problems: No - ABD SURGERY UNABLE TO STATE WHY Hx Hypertension: Yes Hx Neurological Problems: No - Migraine Review of Systems All Other Systems: negative except mentioned in HPI Physical Exam Vital Signs Date Time Temp Pulse Resp B/P (MAP) Pulse Ox O2 Delivery O2 Flow Rate FiO2 07/04/19 14:08 98.8 77 16 131/78 (95) 96 Room Air Sp02 EP Interpretation: reviewed, normal General Appearance: no apparent distress, alert, GCS 15, non-toxic Head: normocephalic, atraumatic Eyes: bilateral eye normal inspection, bilateral eye PERRL ENT: hearing grossly normal, normal voice Neck: full range of motion Respiratory: chest non-tender, lungs clear, normal breath sounds, no respiratory distress, no accessory muscle use, no wheezing, speaking full sentences Cardiovascular #1: regular rate, rhythm, no edema, normal capillary refill Musculoskeletal: normal range of motion, gait/station normal, non-tender Neurologic: alert, motor strength/tone normal, oriented x3, sensory intact, responsive, speech normal Psychiatric: judgement/insight normal Lymphatic: no adenopathy Medical Decision Making PA Attestation Dr. Alvarado is my supervising Physician whom patient management has been discussed with. Diagnostic Impression: Primary Impression: Bronchitis Additional Impression: Persistent cough for 3 weeks or longer ER Course 64-year-old male who is a current daily smoker presents to the emergency department with recurrence of his URI symptoms which he was seen and treated for 3 weeks ago. Patient reports he recently returned from [place] as well. Patient states that he was taking antibiotics and once he finished taking his antibiotics his symptoms returned. Patient describes symptoms of persistent coughing with some mucus in addition to 8 out of 10 severity progressive headaches. Pt. reports hx. of migraines and HTN. Patient denies ever seeing a marine geologist. He states he never followed up with his primary care provider following his previous ER visit. Patient states he continues to smoke while sick. He denies fevers or chills. He denies swelling of the lower extremities. Patient denies nasal congestion or rhinorrhea. He denies neck pain/stiffness or photophobia. Denies CP, Palpitations, LOC, AMS, dizziness, Changes in Vision, Sensation, paresthesias, or a sudden severe headache. Ddx considered but are not limited to URI, pneumonia, PE, strep pharyngitis, meningitis, COVID-19 Vital signs: Pt.is afebrile VS are WNL H&PE are most consistent with bronchitis--most likely chronic in etiology due to longstanding history of smoking. This patient is nontoxic in appearance and in no acute distress. He does not demonstrate any physical exam signs indicating respiratory distress or impending respiratory distress. Patient is oxygenating well at 96% on room air. He does not have hypoxic appearance or symptoms that would suggest hypoxia at this time. ORDERS: none required at this time, the diagnosis is clinical-- ED INTERVENTIONS: None required at this time. DISCHARGE: At this time pt. is stable for d/c to home. Will provide printed patient care instructions, and any necessary prescriptions. Care plan and follow up instructions have been discussed with the patient prior to discharge. Last Vital Signs Date Time Temp Pulse Resp B/P (MAP) Pulse Ox O2 Delivery O2 Flow Rate FiO2 07/04/19 14:18 83 15 Room Air 07/04/19 14:08 98.8 131/78 96 Disposition: HOME, SELF-CARE Condition: Stable Scripts Prednisone* (PREDNISONE*) 20 Mg Tablet 20 MG ORAL DAILY for 4 Days, #4 TAB 0 Refills Prov: Leticia Roberson 07/04/19 Albuterol Sulfate* (ALBUTEROL SULFATE MDI*) 8.5 Gm Hfa.aer.ad 2 PUFF INH Q3H, #1 INH 0 Refills Prov: Leticia Roberson 07/04/19 D-Methorphan Hb/Prometh Hcl* (PROMETHAZINE-DM SYRUP*) 118 Ml Syrup 5 ML ORAL Q6H PRN for For Cough, #120 ML 0 Refills Prov: Leticia Roberson 07/04/19 Referrals: [facility],REFERRING (PCP) Patient Instructions: Acute Bronchitis, [id number] Additional Instructions: Take medications as directed. FOLLOW UP WITH DEMENTIA PROGRAM DIRECTOR within 3-5 days. Follow up with a Primary Care Provider in 3-5 days, even if your symptoms have resolved. Return sooner to ED if new symptoms occur, or current symptoms become worse. - Please note that this Emergency Department Report was dictated using Mobile Authenticationroving inspector technology software, occasionally this can lead to erroneous entry secondary to interpretation by the dictation equipment. Leticia Roberson Jul 04, 2019 15:30
[2019-07-04] MEDS ORDERED: ALBUTEROL SULF8.5 GM INH (15:32)
[2019-07-04] MEDS ORDERED: PREDNISONE20 MG ORAL (15:32)
[2019-07-04] MEDS ORDERED: PROMETHAZINE-D118 ML ORAL (15:32)
[2019-07-04 15:57] VITALS: BP 131/78
[2019-07-05] MEDS ORDERED: PREDNISONE20 MG ORAL (12:33)
[2019-07-05] MEDS ORDERED: DIPHENHYDRAMINE25 M1 ORAL (12:33)
[2019-07-05] MEDS ORDERED: BACITRACIN15 GM TOPIC (12:47)
== END 2019-07-04 15:58 | disposition home or self-care (01) ==
LOC: EDBD 14:08 → EMR 14:55
DX: J40 Bronchitis, not specified as acute or chronic (principal); R05 Cough; F17.200 Nicotine dependence, unspecified, uncomplicated; I10 Essential (primary) hypertension; G43.909 Migraine, unspecified, not intractable, without status migrainosus
CPT/HCPCS: 99282

== ENCOUNTER 2019-07-05 11:30 | Emergency (ER) | payer MEDICAID ==
[~2019-07-05] VITALS: Ht 165.1 cm; Wt 64.9 kg
[~2019-07-05 11:30] MED LIST changes: +PROMETHAZINE-D118 ML ORAL
[2019-07-05] MEDS ORDERED: DiphenhydrAMINE 25mg Tab ORAL ONE (12:15)
[2019-07-05 12:19] VITALS: BP 142/81
[2019-07-05] MEDS ORDERED: DIPHENHYDRAMINE25 M1 ORAL (12:33)
[2019-07-05] MEDS ORDERED: PREDNISONE20 MG ORAL (12:33)
[2019-07-05] MEDS ORDERED: BACITRACIN15 GM TOPIC (12:47)
[2019-07-05 12:56] VITALS: BP 141/80
--- NOTE | 2019-07-06 07:45 | Emergency Room Report ---
History of Present Illness General Chief Complaint: Skin Rash/Abscess Source: Medical Record Present Illness HPI 64-year-old male presents ED for evaluation. States he has had itchiness to his body for the last few days. Denies any rash. Denies any pain. Denies any known food or drug allergies. Denies any sick contacts or recent travel. States he has had these symptoms on and off for years. No other aggravating relieving factors. Denies any other associated symptoms COVID-19 risk:Contact w/high r: No COVID-19 risk:Travel to affect: No Has patient experienced cline: No Coronavirus symptoms experienc: Shortness of Breath, Cough, Runny Nose Allergies: Coded Allergies: No Known Allergies (Unverified , 05/13/13) Patient History Past Medical History: none Past Surgical History: none Pertinent Family History: none Social History: Denies: smoking, alcohol use, drug use Immunizations: UTD Reviewed Nursing Documentation: PMH: Agreed; PSxH: Agreed Nursing Documentation-PMH Past Medical History: No History, Except For Hx Cardiac Problems: No - ABD SURGERY UNABLE TO STATE WHY Hx Hypertension: Yes Hx Neurological Problems: No - Migraine Review of Systems All Other Systems: negative except mentioned in HPI Physical Exam Vital Signs Date Time Temp Pulse Resp B/P (MAP) Pulse Ox O2 Delivery O2 Flow Rate FiO2 07/05/19 11:38 99.7 79 18 150/82 (104) 99 Room Air Sp02 EP Interpretation: reviewed, normal General Appearance: no apparent distress, alert, GCS 15, non-toxic Head: normocephalic, atraumatic Eyes: bilateral eye normal inspection, bilateral eye PERRL ENT: hearing grossly normal, normal pharynx, no angioedema, normal voice Neck: full range of motion, supple/symm/no masses Respiratory: chest non-tender, lungs clear, normal breath sounds, speaking full sentences Cardiovascular #1: regular rate, rhythm, no edema Cardiovascular #2: 2+ carotid (R), 2+ carotid (L), 2+ radial (R), 2+ radial (L) , 2+ dorsalis pedis (R), 2+ dorsalis pedis (L) Gastrointestinal: normal bowel sounds, non tender, soft, non-distended, no guarding, no rebound Rectal: deferred Genitourinary: normal inspection, no CVA tenderness Musculoskeletal: back normal, normal range of motion, gait/station normal, non- tender Neurologic: alert, motor strength/tone normal, oriented x3, sensory intact, responsive, speech normal Psychiatric: judgement/insight normal, memory normal, mood/affect normal, no suicidal/homicidal ideation Reflexes: 3+ bicep (R), 3+ bicep (L), 3+ tricep (R), 3+ tricep (L), 3+ knee (R) , 3+ knee (L) Lymphatic: no adenopathy Medical Decision Making Diagnostic Impression: Primary Impression: Urticaria ER Course Hospital Course 64 yo M presents with itchiness Differential diagnoses include: Cellulitis, dermatitis, insect bite, abscess Clinical course Patient placed on stretcher. After initial history, physical exam reveals a male in no acute distress. Exam there is no urticaria. No rash. No erythema or induration. I discussed findings with patient. This is chronic. Patient would benefit from outpatient dermatology evaluation. In the meanwhile we will prescribe Benadryl steroids, bacitracin. In light of current coronavirus pandemic I do recommend that patient and close contacts self isolate. Safe for discharge for close outpatient followup Diagnosis - urticaria stable and discharged to home with prescription for benedryl, prednisone, bacitracin. Instructed to followup with PMD. Instructed return to ED if symptoms recur or worsen Last Vital Signs Date Time Temp Pulse Resp B/P (MAP) Pulse Ox O2 Delivery O2 Flow Rate FiO2 07/05/19 12:56 99.7 66 18 141/80 97 Room Air Status: improved Disposition: HOME, SELF-CARE Condition: Stable Scripts Bacitracin (Bacitracin) 28.4 Gm Oint...g. 1 APPLIC TOPIC THREE TIMES A DAY, #28.4 GM Prov: Cali Alvarado MD 07/05/19 Prednisone* (PREDNISONE*) 20 Mg Tablet 40 MG ORAL DAILY, #10 TAB Prov: Cali Alvarado MD 07/05/19 Diphenhydramine Hcl* (DIPHENHYDRAMINE HCL*) 25 Mg Capsule 25 MG ORAL Q6H PRN for Itching for 5 Days, #30 CAP 0 Refills Prov: Cali Alvarado MD 07/05/19 Referrals: NON PHYSICIAN (PCP) [facility] Patient Instructions: Hives, [id number] Cali Alvarado MD Jul 06, 2019 07:45
== END 2019-07-05 12:58 | disposition home or self-care (01) ==
LOC: EMR 12:17
DX: L50.9 Urticaria, unspecified (principal); I10 Essential (primary) hypertension
CPT/HCPCS: J7512; Z7502; 99282

== ENCOUNTER 2019-08-22 18:55 | Emergency (ER) | payer MEDICAID, OTHER ==
[~2019-08-22] VITALS: Ht 165.1 cm; Wt 64.9 kg
[2019-08-22 18:50] VITALS: BP 129/83
--- NOTE | 2019-08-22 18:50 | NUR ---
ED Nurse Note: Patient walke din from home c/o flu like sx- bodyaches, cough and fever 101.7F since yesterday. Pt is an active smoker.
--- NOTE | 2019-08-22 19:17 | NUR ---
ED Nurse Note: Xray done.
--- NOTE | 2019-08-22 19:35 | NUR ---
ED Nurse Note: urine and blood sample sent down to lab
[2019-08-22] MEDS ORDERED: Azithromycin 500 MG in NS 275 ML IV ONE (19:45)
[2019-08-22] MEDS ORDERED: cefTRIAXone 1 GM in NS 55 ML IVPB ONE (19:45)
[2019-08-22 20:13] LABS: HEMATOCRIT 42.9 % (42.0-52.0); HEMOGLOBIN 13.8 G/DL (14.2-18.0); MEAN CORPUSCULAR VOLUME 101 FL (80-99); PLATELET COUNT 184 K/UL (150-450); RED BLOOD COUNT 4.24 M/UL (4.70-6.10); RED CELL DISTRIBUTION WIDTH 11.7 % (11.6-14.8); WHITE BLOOD COUNT 18.9 K/UL (4.8-10.8)
--- NOTE | 2019-08-22 20:18 | NUR ---
ED Nurse Note: RT at bedside drawing NATO
[2019-08-22 20:26] LABS: APPEARANCE,URINE CLEAR; BILIRUBIN, URINE NEGATIVE (NEGATIVE); COLOR,URINE BROWN; GLUCOSE, URINE (UA) NEGATIVE (NEGATIVE); KETONES,URINE 1+ (NEGATIVE); LEUKOCYTE ESTERASE ,URINE 3+ (NEGATIVE); NITRITE,URINE POSITIVE (NEGATIVE); PH,URINE 6.5 (4.5-8.0); PROTEIN,URINE 2+ (NEGATIVE); UROBILINOGEN,URINE 4 MG/DL (0.0-1.0)
[2019-08-22 20:36] LABS: ANION GAP 11 mmol/L (5-15); BLOOD UREA NITROGEN 17 mg/dL (7-18); CALCIUM 8.8 MG/DL (8.5-10.1); CARBON DIOXIDE 29 MMOL/L (21-32); CHLORIDE 104 MMOL/L (98-107); CREATININE 1.1 MG/DL (0.55-1.30); POTASSIUM 3.9 MMOL/L (3.5-5.1); SODIUM 144 MMOL/L (136-145)
[2019-08-22 20:51] LABS: ALANINE AMINOTRANSFERASE 25 U/L (12-78); ALBUMIN 3.9 G/DL (3.4-5.0); ALBUMIN/GLOBULIN RATIO 1.1 (1.0-2.7); ALKALINE PHOSPHATASE 82 U/L (46-116); ASPARTATE AMINO TRANSFERASE 19 U/L (15-37); BILIRUBIN,TOTAL 2.7 MG/DL (0.2-1.0)
[2019-08-22 20:52] LABS: BILIRUBIN,DIRECT 0.3 MG/DL (0.0-0.3)
--- NOTE | 2019-08-22 20:57 | Emergency Room Report ---
History of Present Illness General Chief Complaint: Flu Like Symptoms Source: Patient Present Illness HPI 64-year-old male with history of tobacco smoker no other comorbidities here complaining of 1 day of generalized body ache, cough and congestion shortness of breath. Also reports fever that started today. Denies any abdominal pain, nausea vomiting diarrhea. Has not taken medication for symptom relief. Reports that he has been home the whole time. Denies any pain radiation, pleuritic chest pain. No unilateral generalized weakness noted. Neurovascularly intact. Patient is febrile upon arrival temperature of 101 F and O2 sat is 95%. Denies any urinary symptoms. Allergies: Coded Allergies: No Known Allergies (Unverified , 05/13/13) COVID-19 Screening Contact w/high risk pt: No Recent Travel to affected area: No Experienced COVID-19 symptoms?: Yes COVID-19 symptoms experienced: Fever (T>100.4F or >38C), Cough, Flu-Like Symptoms Patient History Past Medical History: see triage record Past Surgical History: none Pertinent Family History: none Social History: Reports: smoking Immunizations: UTD Reviewed Nursing Documentation: PMH: Agreed; PSxH: Agreed Nursing Documentation-PMH Hx Hypertension: Yes History Of Psychiatric Problem: Yes - depression Hx Neurological Problems: No - Migraine Review of Systems All Other Systems: negative except mentioned in HPI Physical Exam Vital Signs Date Time Temp Pulse Resp B/P (MAP) Pulse Ox O2 Delivery O2 Flow Rate FiO2 08/22/19 18:46 101.7 89 19 129/83 (98) 95 Room Air Sp02 EP Interpretation: abnormal - Temperature of 101 F General Appearance: alert, mild distress Head: normocephalic, atraumatic Eyes: bilateral eye normal inspection, bilateral eye PERRL ENT: hearing grossly normal, normal pharynx, no angioedema, normal voice Neck: full range of motion, supple/symm/no masses Respiratory: chest non-tender, lungs clear, normal breath sounds, speaking full sentences Cardiovascular #1: regular rate, rhythm, no edema Cardiovascular #2: 2+ carotid (R), 2+ carotid (L), 2+ radial (R), 2+ radial (L) Gastrointestinal: non tender, soft, no mass, no bruit Rectal: deferred Genitourinary: no CVA tenderness Musculoskeletal: back normal, no calf tenderness Neurologic: alert, motor strength/tone normal, oriented x3, sensory intact, responsive, speech normal Psychiatric: judgement/insight normal, memory normal, mood/affect normal, no suicidal/homicidal ideation Skin: no rash Lymphatic: no adenopathy Medical Decision Making PA Attestation All diagnoses and treatment plans were reviewed and discussed with my supervising physician Dr. Quiñones Diagnostic Impression: Primary Impression: Community acquired pneumonia Additional Impressions: UTI Suspected COVID-19 virus infection ER Course 64-year-old male with history of tobacco smoker no other comorbidities here complaining of 1 day of generalized body ache, cough and congestion shortness of breath. Also reports fever that started today. Denies any abdominal pain, nausea vomiting diarrhea. Has not taken medication for symptom relief. Reports that he has been home the whole time. Denies any pain radiation, pleuritic chest pain. No unilateral generalized weakness noted. Neurovascularly intact. Patient is febrile upon arrival temperature of 101 F and O2 sat is 95%. Denies any urinary symptoms. Ddx considered but are not limited to: bronchitis, PNA, URI viral, bacterial bronchitis, coronavirus Vital signs: are WNL, pt. is afebrile H&PE are most consistent with: Suspected COVID-19 pneumonia, UTI ORDERS: Sepsis order set, Levaquin to cover both UTI and infiltrates in lungs, albuterol, Tylenol ED INTERVENTIONS: Ceftriaxone, NS bolus, Tylenol DISCHARGE: At this time pt. is stable for d/c to home. Will provide printed patient care instructions, and any necessary prescriptions. Care plan and follow up instructions have been discussed with the patient prior to discharge. Patient refuses to be hospitalized at this time. Understands and agrees with the above treatment take medication. However advised to return to emergency room if worsening symptoms. Take medication as directed, follow-up with your primary doctor, you need to stay home for self quarantine due to Covid 19 precautions for 14 days EKG Diagnostic Results Rate: normal Rhythm: NSR ST Segments: no acute changes Other Impression No acute ST changes Chest X-Ray Diagnostic Results Chest X-Ray Diagnostic Results : Chest X-Ray Ordered: Yes # of Views/Limited/Complete: 1 View Indication: Chest Pain EP Interpretation: Yes KARSON Xray: Interpretation reviewed, by supervising MD, and agrees with findings. Interpretation: no consolidation, no effusion, no pneumothorax Impression: No acute disease Electronically Signed by: Jose F Mcdowell PA-C Last Vital Signs Date Time Temp Pulse Resp B/P (MAP) Pulse Ox O2 Delivery O2 Flow Rate FiO2 08/22/19 20:19 101.3 08/22/19 18:50 89 19 129/83 95 Room Air Disposition: HOME, SELF-CARE Condition: Stable Scripts Guaifenesin* (GUAIFENESIN*) 100 Mg/5 Ml Liquid 15 ML ORAL Q8H, #120 ML 0 Refills Prov: Jose F Benito 08/22/19 Albuterol Sulfate (VENTOLIN HFA) 18 Gm Hfa.aer.ad 2 PUFFS INH EVERY 6 HOURS, #18 GM 0 Refills Prov: Jose F Benito 08/22/19 Acetaminophen* (TYLENOL EXTRA STRENGTH*) 500 Mg Tablet 500 MG ORAL Q8H PRN for Prn Headache/Temp > 101, #30 TAB 0 Refills Prov: Jose F Benito 08/22/19 Levofloxacin* (LEVAQUIN*) 750 Mg Tablet 750 MG ORAL DAILY for 7 Days, #7 TAB Prov: Jose F Benito 08/22/19 Referrals: [facility] (PCP) Patient Instructions: Community-Acquired Pneumonia, Adult, Urinary Tract Infection, [id number] Additional Instructions: Take medication as directed, follow-up with your primary doctor, you need to stay home for self quarantine due to Covid 19 precautions for 14 days. Take medication as directed, follow primary doctor, if worsening symptoms return to the emergency room Jose F Benito August 22, 2019 20:57
[2019-08-22] MEDS ORDERED: VENTOLIN HFA18 GM INH (21:00)
[2019-08-22] MEDS ORDERED: TYLENOL EXTRA500 MG ORAL (21:00)
[2019-08-22] MEDS ORDERED: LEVAQUIN750 MG ORAL (21:00)
[2019-08-22] MEDS ORDERED: GUAIFENESI100 MG/5 M ORAL (21:00)
[2019-08-22 21:10] VITALS: BP 130/80
--- NOTE | 2019-08-25 15:40 | Emergency Room Report ---
Physical Exam Vital Signs Date Time Temp Pulse Resp B/P (MAP) Pulse Ox O2 Delivery O2 Flow Rate FiO2 08/22/19 18:46 101.7 89 19 129/83 (98) 95 Room Air Medical Decision Making PA Attestation All diagnoses and treatment plans were reviewed and discussed with my supervising physician Dr. Poole Diagnostic Impression: Primary Impression: Community acquired pneumonia Additional Impressions: Suspected COVID-19 virus infection UTI ER Course Urine culture shows that patient is resistant to the prescribed medication, Levaquin was originally prescribed to treat both pneumonia and UTI however I change it to azithromycin and Macrobid to have coverage for both pneumonia and UTI at this time. I spoke to the patient over the phone and patient appears to be feeling much better and no longer short of breath. I transmitted this medication to patient's pharmacy electronically. Last Vital Signs Date Time Temp Pulse Resp B/P (MAP) Pulse Ox O2 Delivery O2 Flow Rate FiO2 08/22/19 21:10 101.3 106 18 130/80 96 Room Air Disposition: HOME, SELF-CARE Condition: Stable Scripts Nitrofurantoin Monohyd/M-Cryst* (MACROBID 100 MG*) 100 Mg Capsule 100 MG ORAL EVERY 12 HOURS for 7 Days, #14 CAP Prov: Jose F Benito 08/25/19 Azithromycin* (ZITHROMAX*) 250 Mg Tablet 250 MG ORAL DAILY, #6 TAB 0 Refills Take two tables once daily for 1 day, then one tablet once daily for 4 days. Prov: Jose F Benito 08/25/19 Guaifenesin* (GUAIFENESIN*) 100 Mg/5 Ml Liquid 15 ML ORAL Q8H, #120 ML 0 Refills Prov: Jose F Benito 08/22/19 Albuterol Sulfate (VENTOLIN HFA) 18 Gm Hfa.aer.ad 2 PUFFS INH EVERY 6 HOURS, #18 GM 0 Refills Prov: Jose F Benito 08/22/19 Acetaminophen* (TYLENOL EXTRA STRENGTH*) 500 Mg Tablet 500 MG ORAL Q8H PRN for Prn Headache/Temp > 101, #30 TAB 0 Refills Prov: Jose F Benito 08/22/19 Levofloxacin* (LEVAQUIN*) 750 Mg Tablet 750 MG ORAL DAILY for 7 Days, #7 TAB Prov: Jose F Benito 08/22/19 Referrals: [facility] (PCP) Patient Instructions: Urinary Tract Infection, [id number], Community- Acquired Pneumonia, Adult Additional Instructions: Take medication as directed, follow-up with your primary doctor, you need to stay home for self quarantine due to Covid 19 precautions for 14 days. Take medication as directed, follow primary doctor, if worsening symptoms return to the emergency room Jose F Benito August 25, 2019 15:40
[2019-08-25] MEDS ORDERED: NITROFURANTOIN100 M2 ORAL (20:38)
[2019-08-25] MEDS ORDERED: ZITHROMAX250 MG ORAL (20:38)
== END 2019-08-22 21:10 | disposition home or self-care (01) ==
LOC: EMR 19:15
DX: J18.9 Pneumonia, unspecified organism (principal); N39.0 Urinary tract infection, site not specified; I10 Essential (primary) hypertension; F32.9 Major depressive disorder, single episode, unspecified
CPT/HCPCS: 36415; 36600; 71045; 80053; 81003; 82248; 82803; 83605; 83880; 84484; 85007; 85025; 85379; 87040; 87086; 87181; 87635; 93005; 96361; 96365; 96367; J0456; J0696; J7030; J7050; Z7502; 99284

== ENCOUNTER 2020-04-09 10:41 | Emergency (ER) | payer MEDICAID, OTHER ==
[~2020-04-09] VITALS: Ht 165.1 cm; Wt 64.9 kg
[~2020-04-09 10:41] MED LIST changes: +GUAIFENESI100 MG/5 M ORAL; +NITROFURANTOIN100 M2 ORAL; +VENTOLIN HFA18 GM INH
[2020-04-09 10:47] VITALS: BP 128/95
--- NOTE | 2020-04-09 10:47 | NUR ---
ED Nurse Note:pt. aaox4, ambulatory. pt. wlaked into er from home. per pt. he sarkar been having generalized body pain x 6 months with no reports of recent falls or trauma. no s/s of acute resp distress noted. pt. reported he takes motrin but no effective.
[2020-04-09] MEDS ORDERED: TYLENOL EXTRA500 MG ORAL (10:54)
[2020-04-09 10:55] VITALS: BP 112/75
--- NOTE | 2020-04-09 10:55 | NUR ---
ER DISCHARGE NOTE: Patient is cleared to be discharged per ERMD, pt is aox4, on room air, with stable vital signs. pt was given dc and prescription instructions, pt was able to verbalize understanding, pt id band removed. pt is able to ambulate with steady gait. pt took all belongings.ERMD aware of patient's pain level prior to discharge
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
== END 2020-04-09 10:55 | disposition home or self-care (01) ==
LOC: EMR 10:55
DX: M79.10 Myalgia, unspecified site (principal); I10 Essential (primary) hypertension
CPT/HCPCS: 99282

== ENCOUNTER 2020-04-22 14:03 | Emergency (ER) | payer MEDICAID ==
[~2020-04-22] VITALS: Ht 165.1 cm; Wt 64.9 kg
[2020-04-22 14:40] VITALS: BP 127/81
--- NOTE | 2020-04-22 14:40 | NUR ---
ED Nurse Note: Pt walked in from home c/o dizziness x 2 days. Denies SOB/CP. Denies n/v/d. Respirations even and unlabored on room air. Vitals stable as documented. A+Ox4, speaking in complete sentences.
--- NOTE | 2020-04-22 15:16 | Diagnostic Imaging Report ---
Procedure: XRAY Chest 1v Reason for study: Shortness of breath. Comparison films: 06/18/2019. FINDINGS: A single one view chest is obtained. There is slight vascular prominence. No suzi infiltrate or edema. Cardiac and mediastinal silhouette are within normal limits. CP angles are sharp. The bony thorax appear unremarkable. IMPRESSION: Mild vascular prominence perhaps mild venous congestion. No suzi infiltrate or edema.
[2020-04-22 15:46] LABS: ANION GAP 7 mmol/L (5-15); BLOOD UREA NITROGEN 19 mg/dL (7-18); CALCIUM 8.6 MG/DL (8.5-10.1); CARBON DIOXIDE 28 MMOL/L (21-32); CHLORIDE 104 MMOL/L (98-107); CREATININE 0.9 MG/DL (0.55-1.30); POTASSIUM 4.2 MMOL/L (3.5-5.1); SODIUM 139 MMOL/L (136-145)
[2020-04-22 15:51] LABS: ALANINE AMINOTRANSFERASE 28 U/L (12-78); ALBUMIN 3.5 G/DL (3.4-5.0); ALBUMIN/GLOBULIN RATIO 1.3 (1.0-2.7); ALKALINE PHOSPHATASE 80 U/L (46-116); ASPARTATE AMINO TRANSFERASE 21 U/L (15-37); BILIRUBIN,TOTAL 0.9 MG/DL (0.2-1.0)
[2020-04-22 15:58] LABS: BILIRUBIN, URINE NEGATIVE (NEGATIVE); GLUCOSE, URINE (UA) NEGATIVE (NEGATIVE); KETONES,URINE NEGATIVE (NEGATIVE); LEUKOCYTE ESTERASE ,URINE 1+ (NEGATIVE); NITRITE,URINE NEGATIVE (NEGATIVE); PH,URINE 6.5 (4.5-8.0); PROTEIN,URINE 1+ (NEGATIVE); UROBILINOGEN,URINE 1 MG/DL (0.0-1.0)
[2020-04-22 16:10] LABS: BASOPHILS % (AUTO) 0.9 % (0.0-2.0); EOSINOPHILS % (AUTO) 0.8 % (0.0-3.0); HEMATOCRIT 42.9 % (42.0-52.0); HEMOGLOBIN 14.1 G/DL (14.2-18.0); LYMPHOCYTES % (AUTO) 26.4 % (20.0-45.0); MEAN CORPUSCULAR VOLUME 102 FL (80-99); MONOCYTES % (AUTO) 5.6 % (1.0-10.0); NEUTROPHILS % (AUTO) 66.3 % (45.0-75.0); PLATELET COUNT 134 K/UL (150-450); RED BLOOD COUNT 4.21 M/UL (4.70-6.10); WHITE BLOOD COUNT 8.1 K/UL (4.8-10.8)
--- NOTE | 2020-04-22 16:18 | Emergency Room Report ---
History of Present Illness General Chief Complaint: Dizziness Source: Patient, Medical Record Present Illness HPI This patient states he has felt "dizzy" for the past couple days. He states that the symptoms are worse when he stands up from lying down. He is unsure whether it is true spinning but believes that the room does move. He states he also has difficulty with balance and that he has been weak and fatigued for the past 2 days. He states he is also had a little bit of a sore throat. He presents during the COVID-19 pandemic. He denies cough or congestion. Denies fever or chills. He denies nausea or vomiting. Denies shortness of breath or chest pain. He denies abdominal pain. He denies headache or neck pain. He denies tingling or numbness. He has no other complaints. Allergies: Coded Allergies: No Known Allergies (Unverified , 05/13/13) COVID-19 Screening Contact w/high risk pt: No Recent Travel to affected area: No Experienced COVID-19 symptoms?: No COVID-19 symptoms experienced: Shortness of Breath, Cough, Runny Nose COVID-19 Testing performed [employer]: No Patient History Past Medical History: none, see triage record, HTN Social History: Denies: smoking, alcohol use, drug use Reviewed Nursing Documentation: PMH: Agreed; PSxH: Agreed Nursing Documentation-PMH Past Medical History: No History, Except For Hx Hypertension: Yes Hx Neurological Problems: No - Migraine Review of Systems All Other Systems: negative except mentioned in HPI Physical Exam Vital Signs Date Time Temp Pulse Resp B/P (MAP) Pulse Ox O2 Delivery O2 Flow Rate FiO2 04/22/20 14:26 98.8 63 16 125/84 (98) 95 Room Air Sp02 EP Interpretation: reviewed, normal General Appearance: no apparent distress, alert, GCS 15, non-toxic Head: normocephalic, atraumatic Eyes: bilateral eye normal inspection, bilateral eye PERRL ENT: hearing grossly normal, normal pharynx, no angioedema, normal voice Neck: full range of motion, supple/symm/no masses Respiratory: chest non-tender, lungs clear, normal breath sounds, no respiratory distress, no retraction, no accessory muscle use, speaking full sentences Cardiovascular #1: regular rate, rhythm, no edema Gastrointestinal: normal bowel sounds, non tender, soft, non-distended, no guarding, no rebound Rectal: deferred Musculoskeletal: back normal, normal range of motion, gait/station normal, non-tender Neurologic: alert, motor strength/tone normal, oriented x3, sensory intact, responsive, speech normal Psychiatric: judgement/insight normal, memory normal, mood/affect normal, no suicidal/homicidal ideation Skin: no rash, normal color Medical Decision Making Diagnostic Impression: Primary Impression: Vertigo ER Course I suspect the pre-syncope/vertigo that the patient is presenting with is a nonemergent in etiology. Regarding the history, the patient has no history of structural heart disease or coronary artery disease, no family history of sudden , has no shortness of breath, and the syncope is not exertional. On physical exam, the patient is not hypotensive, has no findings of CHF, and no significant cardiac murmur suggestive of valvular heart disease or cardiac outflow obstruction. The patient reports no history of seizure or head trauma. EKG showed no evidence of concerning findings of QT prolongation, Brugada syndrome or significant ST changes suggestive of acute ischemia, dysrhythmias or significant conduction abnormalities. On laboratory evaluation, blood sugar was normal and the patient is not anemic. The patient was counseled that, though unlikely, the possibility of an emergent cause of syncope may be present and that the patient should return immediately if symptoms persist or worsen. I believe the patient is stable for discharge to followup with her PMD for further workup. The patient had ambulated in the emergency department before discharge and was asymptomatic. This patient was evaluated in the context of the global COVID-19 pandemic, which necessitated consideration that the patient might be at risk for infection with the [id number] virus that causes COVID-19. Institutional protocols and algorithms that pertain to the evaluation of patients at risk for COVID-19 and the state of rapid change based on information released by multiple regulatory bodies including the CDC and federal and state organizations. These policies and algorithms were followed during the patient's care in the ED. Laboratory Tests Test 04/22/20 14:50 04/22/20 15:10 White Blood Count 8.1 K/UL (4.8-10.8) Red Blood Count 4.21 M/UL (4.70-6.10) L Hemoglobin 14.1 G/DL (14.2-18.0) L Hematocrit 42.9 % (42.0-52.0) Mean Corpuscular Volume 102 FL (80-99) H Mean Corpuscular Hemoglobin 33.6 PG (27.0-31.0) H Mean Corpuscular Hemoglobin Concent 32.9 G/DL (32.0-36.0) Red Cell Distribution Width 11.0 % (11.6-14.8) L Platelet Count 134 K/UL (150-450) L Mean Platelet Volume 9.5 FL (6.5-10.1) Neutrophils (%) (Auto) 66.3 % (45.0-75.0) Lymphocytes (%) (Auto) 26.4 % (20.0-45.0) Monocytes (%) (Auto) 5.6 % (1.0-10.0) Eosinophils (%) (Auto) 0.8 % (0.0-3.0) Basophils (%) (Auto) 0.9 % (0.0-2.0) Sodium Level 139 MMOL/L (136-145) Potassium Level 4.2 MMOL/L (3.5-5.1) Chloride Level 104 MMOL/L (98-107) Carbon Dioxide Level 28 MMOL/L (21-32) Anion Gap 7 mmol/L (5-15) Blood Urea Nitrogen 19 mg/dL (7-18) H Creatinine 0.9 MG/DL (0.55-1.30) Estimated Glomerular Filtration Rate > 60 mL/min (>60) Glucose Level 90 MG/DL (74-106) Calcium Level 8.6 MG/DL (8.5-10.1) Total Bilirubin 0.9 MG/DL (0.2-1.0) Aspartate Amino Transferase (AST) 21 U/L (15-37) Alanine Aminotransferase (ALT) 28 U/L (12-78) Alkaline Phosphatase 80 U/L (46-116) Troponin I 0.012 ng/mL (0.000-0.056) Total Protein 6.2 G/DL (6.4-8.2) L Albumin 3.5 G/DL (3.4-5.0) Globulin 2.7 g/dL Albumin/Globulin Ratio 1.3 (1.0-2.7) Urine Color Yellow Urine Appearance Slightly cloudy Urine pH 6.5 (4.5-8.0) Urine Specific [place] 1.015 (1.005-1.035) Urine Protein 1+ (NEGATIVE) H Urine Glucose (UA) Negative (NEGATIVE) Urine Ketones Negative (NEGATIVE) Urine Blood 3+ (NEGATIVE) H Urine Nitrite Negative (NEGATIVE) Urine Bilirubin Negative (NEGATIVE) Urine Urobilinogen 1 MG/DL (0.0-1.0) H Urine Leukocyte Esterase 1+ (NEGATIVE) H Urine RBC 30-40 /HPF (0 - 0) H Urine WBC 2-4 /HPF (0 - 0) Urine Squamous Epithelial Cells None /LPF (NONE/OCC) Urine Bacteria Few /HPF (NONE) Urine Mucus Many /LPF (NONE/OCC) H Microbiology Date/Time Source Procedure Growth Status 04/22/20 17:10 Nasopharynx SARS-CoV-2 RdRp Gene Assay - Final Complete EKG Diagnostic Results Rate: normal Rhythm: NSR ST Segments: no acute changes Rhythm Strip Diag. Results EP Interpretation: yes Rate: 60's Rhythm: NSR, no PVC's, no ectopy Other Impression Large Q wave in lead III Chest X-Ray Diagnostic Results Chest X-Ray Diagnostic Results : # of Views/Limited/Complete: 1 View Indication: Other - dizzy EP Interpretation: Yes Interpretation: no consolidation, no effusion, no pneumothorax, no acute cardiopulmonary disease Impression: No acute disease Electronically Signed by: Mary Heck DO CT/MRI/US Diagnostic Results CT/MRI/US Diagnostic Results : Imaging Test Ordered: CT head Impression No acute findings. Specifically no intracranial bleed, mass effect or edema. See official report. Last Vital Signs Date Time Temp Pulse Resp B/P (MAP) Pulse Ox O2 Delivery O2 Flow Rate FiO2 04/22/20 14:40 65 18 Room Air 04/22/20 14:40 98.6 127/81 96 Status: improved Disposition: HOME, SELF-CARE Condition: Improved Referrals: [facility]ERR[facility] (PCP) Patient Instructions: Mary Gallagher DO Apr 22, 2020 16:18
[2020-04-22 16:30] VITALS: BP 133/85
[2020-04-22 16:33] LABS: COLOR,URINE YELLOW
[2020-04-22 16:34] LABS: APPEARANCE,URINE SLIGHTLY CLOUDY
--- NOTE | 2020-04-22 16:57 | Diagnostic Imaging Report ---
Indications: Dizziness for 2 days Technique: Spiral acquisitions obtained through the brain. Angled axial and coronal 5 x 5 mm slices were reconstructed. Total dose length product 967 mGycm. CTDI vol(s) 53 mGy. Dose reduction achieved using automated exposure control Comparison: 07/31/2018. Findings: No acute intracranial hemorrhage or edema, mass effect, or midline shift. There is age-related enlargement of the ventricles and extra-axial space spaces. Normal amaya-white differentiation. Visualized orbits and sinuses are unremarkable. The mastoids are clear. The calvarium is intact. No significant interval change Impression: Age-related volume loss. Negative for acute intracranial bleed or mass effect The CT scanner at [facility] is accredited by the [employer] and the scans are performed using protocols designed to limit radiation exposure to as low as reasonably achievable to attain images of sufficient resolution adequate for diagnostic evaluation.
[2020-04-22 18:30] VITALS: BP 141/74
--- NOTE | 2020-04-22 19:03 | NUR ---
HAND-OFF: Report given to LIV Vazquez. Pt in stable condition; plan of care endorsed.
--- NOTE | 2020-04-22 19:29 | NUR ---
ED Nurse Note: Recieved care from Christina. Pt is resting comfortably, breathing is even and unlabored, speaks in complete sentances, vitals are stable as documented on RA. No complaints of pain.
[2020-04-22] MEDS ORDERED: MECLIZINE HCL25 MG ORAL (20:21)
[2020-04-22 20:45] VITALS: BP 135/86
--- NOTE | 2020-04-22 20:45 | NUR ---
ER DISCHARGE NOTE: Patient is cleared to be discharged per ERMD, pt is aox4, on room air, with stable vital signs. pt was given dc and prescription instructions, pt was able to verbalize understanding, pt id band and iv site removed without complications. pt is able to ambulate with steady gait. pt took all belongings. Pt left in a private vehicle
--- NOTE | 2020-04-23 12:55 | Cardiology Report ---
APPROVED REPORT EKG Measurement Heart [id number] <Conclusion> Normal sinus rhythm Voltage criteria for left ventricular hypertrophy Inferior infarct, age undetermined Abnormal ECG
== END 2020-04-22 20:45 | disposition home or self-care (01) ==
LOC: EMR 14:30
DX: R42 Dizziness and giddiness (principal); I10 Essential (primary) hypertension
CPT/HCPCS: 36415; 70450; 71045; 80053; 81003; 84484; 85025; 93005; 96360; U0002; Z7502; 99284

== ENCOUNTER 2020-04-28 11:11 | Emergency (ER) | payer MEDICAID ==
[~2020-04-28] VITALS: Ht 165.1 cm; Wt 67.1 kg
--- NOTE | 2020-04-28 11:35 | Emergency Room Report ---
History of Present Illness General Chief Complaint: Chest Pain Source: Patient Present Illness HPI 65-year-old male history of 40 pack years presents with shortness of breath chest tightness ongoing for the past week no aggravating relieving factors severity is moderate, constant he does endorse some dyspnea on exertion, no fevers no chills patient presents for evaluation and treatment Allergies: Coded Allergies: No Known Allergies (Unverified , 05/13/13) COVID-19 Screening Contact w/high risk pt: No Recent Travel to affected area: No Experienced COVID-19 symptoms?: No COVID-19 symptoms experienced: Shortness of Breath, Cough, Runny Nose Patient History Past Medical History: see triage record Social History: Reports: smoking Reviewed Nursing Documentation: PMH: Agreed; PSxH: Agreed Nursing Documentation-PMH Hx Hypertension: Yes Hx Neurological Problems: No - Migraine Review of Systems All Other Systems: negative except mentioned in HPI Physical Exam Sp02 EP Interpretation: reviewed, normal General Appearance: well appearing, no apparent distress, alert Head: normocephalic, atraumatic Eyes: bilateral eye PERRL, bilateral eye EOMI ENT: uvula midline, moist mucus membranes Neck: supple, thyroid normal, supple/symm/no masses Respiratory: lungs clear, decreased breath sounds, accessory muscle use Cardiovascular #1: normal peripheral pulses, regular rate, rhythm, no edema, no gallop, no murmur Gastrointestinal: non tender, soft, no guarding, no rebound Musculoskeletal: normal inspection Neurologic: alert, oriented x3 Psychiatric: mood/affect normal Skin: no rash, warm/dry Medical Decision Making Diagnostic Impression: Primary Impression: COPD exacerbation ER Course 65-year-old male presents with chest pain most likely consistent with a COPD exacerbation patient will be given Decadron, Combivent will reassess Reevaluation 1306 patient with improved air movement patient feels better after Combivent and steroids Disposition home with return precautions follow-up with PCP Patient given combivent inhaler to go home with. Laboratory Tests Test 04/28/20 11:45 White Blood Count 5.8 K/UL (4.8-10.8) Red Blood Count 4.45 M/UL (4.70-6.10) L Hemoglobin 14.2 G/DL (14.2-18.0) Hematocrit 42.6 % (42.0-52.0) Mean Corpuscular Volume 96 FL (80-99) Mean Corpuscular Hemoglobin 32.0 PG (27.0-31.0) H Mean Corpuscular Hemoglobin Concent 33.4 G/DL (32.0-36.0) Red Cell Distribution Width 11.3 % (11.6-14.8) L Platelet Count 155 K/UL (150-450) Mean Platelet Volume 9.9 FL (6.5-10.1) Neutrophils (%) (Auto) 66.2 % (45.0-75.0) Lymphocytes (%) (Auto) 22.5 % (20.0-45.0) Monocytes (%) (Auto) 8.8 % (1.0-10.0) Eosinophils (%) (Auto) 1.8 % (0.0-3.0) Basophils (%) (Auto) 0.9 % (0.0-2.0) Sodium Level 139 MMOL/L (136-145) Potassium Level 4.0 MMOL/L (3.5-5.1) Chloride Level 106 MMOL/L (98-107) Carbon Dioxide Level 25 MMOL/L (21-32) Anion Gap 8 mmol/L (5-15) Blood Urea Nitrogen 18 mg/dL (7-18) Creatinine 0.9 MG/DL (0.55-1.30) Estimated Glomerular Filtration Rate > 60 mL/min (>60) Glucose Level 101 MG/DL (74-106) Calcium Level 8.7 MG/DL (8.5-10.1) Total Bilirubin 2.0 MG/DL (0.2-1.0) H Direct Bilirubin 0.4 MG/DL (0.0-0.3) H Aspartate Amino Transferase (AST) 132 U/L (15-37) H Alanine Aminotransferase (ALT) 215 U/L (12-78) H Alkaline Phosphatase 75 U/L (46-116) Troponin I 0.007 ng/mL (0.000-0.056) Pro-B-Type Natriuretic Peptide 21 pg/mL (0-125) Total Protein 6.5 G/DL (6.4-8.2) Albumin 3.4 G/DL (3.4-5.0) Globulin 3.1 g/dL Albumin/Globulin Ratio 1.1 (1.0-2.7) Lipase 201 U/L (73-393) Microbiology Date/Time Source Procedure Growth Status 04/28/20 11:45 Nasopharynx SARS-CoV-2 RdRp Gene Assay - Final Complete EKG Diagnostic Results Troponin ordered: Yes EKG Time: 11:28 EP Interpretation: NSR, rate 63, QTc 401, no acute ST elevations, normal axis Rhythm Strip Diag. Results Rhythm Strip Time: 13:05 EP Interpretation: yes Rate: 56 Rhythm: other - Sinus bradycardia Chest X-Ray Diagnostic Results Chest X-Ray Diagnostic Results : Chest X-Ray Ordered: Yes # of Views/Limited/Complete: 1 View Indication: Chest Pain EP Interpretation: Yes Interpretation: no consolidation, no effusion, no pneumothorax, no acute cardiopulmonary disease Impression: No acute disease Electronically Signed by: Elliott Garcia MD Disposition: HOME, SELF-CARE Condition: Stable Referrals: [facility] Patient Instructions: Chronic Obstructive Pulmonary Disease Exacerbation, [id number] Additional Instructions: The patient was provided with discharge instructions, notified to follow-up with a primary care doctor and or specialist in the next 24-48 hours, and to return to the ED if they have worsening of their symptoms. Please note that this report is being documented using [employer] technology. This can lead to erroneous entry secondary to incorrect interpretation by the [employer] instrument. Elliott Garcia MD Apr 28, 2020 11:34
[2020-04-28 12:01] VITALS: BP 114/76
[2020-04-28 12:29] LABS: BASOPHILS % (AUTO) 0.9 % (0.0-2.0); EOSINOPHILS % (AUTO) 1.8 % (0.0-3.0); HEMATOCRIT 42.6 % (42.0-52.0); HEMOGLOBIN 14.2 G/DL (14.2-18.0); LYMPHOCYTES % (AUTO) 22.5 % (20.0-45.0); MEAN CORPUSCULAR VOLUME 96 FL (80-99); MONOCYTES % (AUTO) 8.8 % (1.0-10.0); NEUTROPHILS % (AUTO) 66.2 % (45.0-75.0); PLATELET COUNT 155 K/UL (150-450); RED BLOOD COUNT 4.45 M/UL (4.70-6.10); RED CELL DISTRIBUTION WIDTH 11.3 % (11.6-14.8); WHITE BLOOD COUNT 5.8 K/UL (4.8-10.8)
[2020-04-28 12:34] LABS: ANION GAP 8 mmol/L (5-15); BLOOD UREA NITROGEN 18 mg/dL (7-18); CALCIUM 8.7 MG/DL (8.5-10.1); CARBON DIOXIDE 25 MMOL/L (21-32); CHLORIDE 106 MMOL/L (98-107); CREATININE 0.9 MG/DL (0.55-1.30); SODIUM 139 MMOL/L (136-145)
[2020-04-28 12:47] LABS: ALANINE AMINOTRANSFERASE 215 U/L (12-78); ALBUMIN 3.4 G/DL (3.4-5.0); ALBUMIN/GLOBULIN RATIO 1.1 (1.0-2.7); ALKALINE PHOSPHATASE 75 U/L (46-116); ASPARTATE AMINO TRANSFERASE 132 U/L (15-37); BILIRUBIN,DIRECT 0.4 MG/DL (0.0-0.3)
--- NOTE | 2020-04-28 13:03 | Diagnostic Imaging Report ---
Indication: Chest pain Technique: XRAY Chest 1v Comparison: 04/22/2020 Findings: Heart is enlarged but stable in size compared to the prior exam. Mediastinal contours are sharp. There is mild vascular congestion. No focal airspace consolidation. No evidence of alveolar edema. No pleural effusion or pneumothorax. No acute osseous abnormality. Impression: Cardiomegaly and mild vascular prominence suggesting mild congestion. No focal consolidation or evidence to suggest alveolar edema.
[2020-04-28 13:18] VITALS: BP 121/78
== END 2020-04-28 13:18 | disposition home or self-care (01) ==
LOC: EMR 12:18
DX: J44.1 Chronic obstructive pulmonary disease with (acute) exacerbation (principal); I10 Essential (primary) hypertension; Z79.899 Other long term (current) drug therapy
CPT/HCPCS: 36415; 71045; 80053; 82248; 83690; 83880; 84484; 85025; 93005; 96360; J7030; J8540; U0002; Z7502; 99284

== ENCOUNTER 2020-05-04 15:15 | Emergency (ER) | payer MEDICAID ==
[~2020-05-04] VITALS: Ht 172.7 cm; Wt 77.1 kg
--- NOTE | 2020-05-04 16:27 | Emergency Room Report ---
History of Present Illness General Chief Complaint: To Be Triaged Source: Patient Present Illness HPI Patient presents with 2 days of chest pain. He states he was diagnosed with COVID-19 recently. He has still had a productive cough. He has body aches and fatigue. He has been taking Advil and Tylenol. The patient's been using his inhaler. He has a history of COPD. He poorly characterizes the chest pain. He rates the pain 5/10 and substernal. It is somewhat positional. It does not radiate. He has been taking Motrin. He states this has not been helping. He complains of dizziness and states that it is more spinning. Patient was evaluated April 22 and April 28. On the he complained of vertigo. On the he complained of COPD exacerbation. Both times his Covid tests were negative. No fevers, chills, sore throat, palpitations, nausea, vomiting, diarrhea, dysuria, abdominal pain, shortness of breath, joint pain, rashes, depression, anxiety, visual changes, headache. Allergies: Coded Allergies: No Known Allergies (Unverified , 05/13/13) COVID-19 Screening Contact w/high risk pt: No Recent Travel to affected area: No Experienced COVID-19 symptoms?: No COVID-19 symptoms experienced: Shortness of Breath, Cough, Runny Nose Patient History Past Medical History: see triage record, old chart reviewed Social History: Reports: smoking Social History Narrative Patient lives with his sister Reviewed Nursing Documentation: PMH: Agreed; PSxH: Agreed Nursing Documentation-PMH Hx Hypertension: Yes Hx Neurological Problems: No - Migraine Review of Systems All Other Systems: negative except mentioned in HPI Physical Exam Vital Signs Date Time Temp Pulse Resp B/P (MAP) Pulse Ox O2 Delivery O2 Flow Rate FiO2 05/04/20 16:25 98.1 68 18 150/80 (103) 96 Room Air Sp02 EP Interpretation: reviewed, normal General Appearance: well appearing, no apparent distress, GCS 15 Head: normocephalic Eyes: bilateral eye normal inspection, bilateral eye PERRL, bilateral eye EOMI ENT: moist mucus membranes Neck: supple Respiratory: lungs clear, normal breath sounds, other - Mild chest wall tenderness Cardiovascular #1: regular rate, rhythm Cardiovascular #2: 2+ radial (R) Gastrointestinal: normal inspection, normal bowel sounds, non tender, no mass, non-distended Genitourinary: no CVA tenderness Musculoskeletal: back normal, normal range of motion, no calf tenderness, gait/station normal Neurologic: alert, oriented x3, grossly normal Psychiatric: mood/affect normal - Slightly anxious Skin: no rash, warm/dry Medical Decision Making Diagnostic Impression: Primary Impression: COPD exacerbation Additional Impressions: COVID-19 ruled out by laboratory testing Dizziness Chest pain Qualified Codes: R07.9 - Chest pain, unspecified ER Course Patient presents with chest pain and dizziness with history of COPD and allegedly is Covid positive. Differential includes COVID-19 pneumonia, COVID-19 disease, COPD exacerbation, acute myocardial infarction, pulmonary embolus amongst others. Based on exam pulmonary embolus is less likely. At 2 days, if myocardial damage would expect troponin to be +. Evaluation with EKG, chest x- ray and labs. 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 EKG without injury. Chest x-ray COPD without infiltrates. Labs with negative Covid, normal white count, negative troponin. Patient remained stable however was still complaining about chest pain. Tylenol with codeine and prednisone administered. No apparent emergency at this time. Discussed results with patient and stressed the fact that he was not Covid positive. Discussed the need for outpatient follow-up with his primary physician. Also outlined treatment plan. Patient stable for outpatient observation and treatment. This patient was evaluated in the context of the global COVID-19 pandemic, which necessitated consideration that the patient might be at risk for infection with the HQUA-ZOAPD-4 virus that causes COVID-19. Institutional protocols and algorithms that pertain to the evaluation of patients at risk for COVID-19 and the state of rapid change based on information released by multiple regulatory bodies including the CDC and federal and state organizations. These policies and algorithms were followed during the patient's care in the ED. Laboratory Tests Test 05/04/20 16:15 White Blood Count 9.6 K/UL (4.8-10.8) Red Blood Count 4.46 M/UL (4.70-6.10) L Hemoglobin 14.2 G/DL (14.2-18.0) Hematocrit 43.2 % (42.0-52.0) Mean Corpuscular Volume 97 FL (80-99) Mean Corpuscular Hemoglobin 31.9 PG (27.0-31.0) H Mean Corpuscular Hemoglobin Concent 32.9 G/DL (32.0-36.0) Red Cell Distribution Width 11.2 % (11.6-14.8) L Platelet Count 197 K/UL (150-450) Mean Platelet Volume 9.4 FL (6.5-10.1) Neutrophils (%) (Auto) 61.3 % (45.0-75.0) Lymphocytes (%) (Auto) 30.8 % (20.0-45.0) Monocytes (%) (Auto) 6.2 % (1.0-10.0) Eosinophils (%) (Auto) 0.8 % (0.0-3.0) Basophils (%) (Auto) 1.0 % (0.0-2.0) Prothrombin Time 12.4 SEC (9.30-11.50) H Prothrombin Time INR 1.1 (0.9-1.1) Activated Partial Thromboplast Time 25 SEC (23-33) D-Dimer < 0.19 mg/L FEU Urine Color Yellow Urine Appearance Clear Urine pH 6 (4.5-8.0) Urine Specific [place] 1.010 (1.005-1.035) Urine Protein Negative (NEGATIVE) Urine Glucose (UA) Negative (NEGATIVE) Urine Ketones Negative (NEGATIVE) Urine Blood 1+ (NEGATIVE) H Urine Nitrite Negative (NEGATIVE) Urine Bilirubin Negative (NEGATIVE) Urine Urobilinogen 4 MG/DL (0.0-1.0) H Urine Leukocyte Esterase Negative (NEGATIVE) Urine RBC 0-2 /HPF (0 - 0) H Urine WBC 0-2 /HPF (0 - 0) Urine Squamous Epithelial Cells None /LPF (NONE/OCC) Urine Bacteria None /HPF (NONE) Sodium Level 139 MMOL/L (136-145) Potassium Level 4.6 MMOL/L (3.5-5.1) Chloride Level 105 MMOL/L (98-107) Carbon Dioxide Level 27 MMOL/L (21-32) Anion Gap 7 mmol/L (5-15) Blood Urea Nitrogen 17 mg/dL (7-18) Creatinine 0.8 MG/DL (0.55-1.30) Estimated Glomerular Filtration Rate > 60 mL/min (>60) Glucose Level 93 MG/DL (74-106) Lactic Acid Level 1.00 mmol/L (0.4-2.0) Calcium Level 8.8 MG/DL (8.5-10.1) Magnesium Level 2.1 MG/DL (1.8-2.4) Ferritin 135 NG/ML (8-388) Total Bilirubin 2.9 MG/DL (0.2-1.0) H Direct Bilirubin 0.3 MG/DL (0.0-0.3) Aspartate Amino Transferase (AST) 56 U/L (15-37) H Alanine Aminotransferase (ALT) 134 U/L (12-78) H Alkaline Phosphatase 75 U/L (46-116) Lactate Dehydrogenase 304 U/L (81-234) H Total Creatine Kinase 153 U/L (26-308) Troponin I 0.005 ng/mL (0.000-0.056) C-Reactive Protein, Quantitative < 0.4 mg/dL (0.00-0.90) Pro-B-Type Natriuretic Peptide 15 pg/mL (0-125) Total Protein 6.6 G/DL (6.4-8.2) Albumin 3.4 G/DL (3.4-5.0) Globulin 3.2 g/dL Albumin/Globulin Ratio 1.1 (1.0-2.7) Lipase 169 U/L (73-393) Microbiology Date/Time Source Procedure Growth Status 05/04/20 16:15 Nasopharynx SARS-CoV-2 RdRp Gene Assay - Final Complete EKG Diagnostic Results Rate: normal Rhythm: NSR ST Segments: no acute changes Rhythm Strip Diag. Results EP Interpretation: yes Rhythm: NSR, no PVC's, no ectopy Chest X-Ray Diagnostic Results Chest X-Ray Diagnostic Results : Chest X-Ray Ordered: Yes # of Views/Limited/Complete: 1 View Indication: Chest Pain EP Interpretation: Yes Interpretation: no consolidation, no effusion, no pneumothorax, other - copd Impression: Other Electronically Signed by: Electronically signed by Jacques Gillette MD Last Vital Signs Date Time Temp Pulse Resp B/P (MAP) Pulse Ox O2 Delivery O2 Flow Rate FiO2 05/04/20 18:55 98.2 05/04/20 18:55 80 18 123/73 98 Room Air Status: improved Disposition: HOME, SELF-CARE Condition: Improved Scripts Acetaminophen (Tylenol) 325 Mg Tablet 650 MG ORAL Q6H PRN for Prn Pain/Headache/Temp > 101, #20 TAB 0 Refills Prov: Jacques Gillette MD 05/04/20 Ipratropium [place] (ATROVENT HFA) 12.9 Gm Hfa.aer.ad 2 PUFFS IH Q6HR, #1 UNIT Prov: Jacques Gillette MD 05/04/20 Guaifenesin/Codeine Phos* (ROBITUSSIN AC*) 118 Ml Liquid 5 ML ORAL Q6H PRN for For Cough, #90 ML 0 Refills Prov: Jacques Gillette MD 05/04/20 Prednisone* (PREDNISONE*) 20 Mg Tablet 40 MG ORAL DAILY, #10 TAB Prov: Jacques Gillette MD 05/04/20 Referrals: [facility]ERR[facility] (PCP) Jacques Gillette MD May 04, 2020 16:27
[2020-05-04 16:49] LABS: EOSINOPHILS % (AUTO) 0.8 % (0.0-3.0); HEMATOCRIT 43.2 % (42.0-52.0); HEMOGLOBIN 14.2 G/DL (14.2-18.0); LYMPHOCYTES % (AUTO) 30.8 % (20.0-45.0); MEAN CORPUSCULAR VOLUME 97 FL (80-99); MONOCYTES % (AUTO) 6.2 % (1.0-10.0); NEUTROPHILS % (AUTO) 61.3 % (45.0-75.0); PLATELET COUNT 197 K/UL (150-450); RED BLOOD COUNT 4.46 M/UL (4.70-6.10); RED CELL DISTRIBUTION WIDTH 11.2 % (11.6-14.8); WHITE BLOOD COUNT 9.6 K/UL (4.8-10.8)
[2020-05-04 16:51] VITALS: BP 120/80
--- NOTE | 2020-05-04 16:52 | NUR ---
came to er complaints of chest pain on and off x 2 days . per patient he was treated for covid but still has symptoms
[2020-05-04 16:56] LABS: APPEARANCE,URINE CLEAR; BILIRUBIN, URINE NEGATIVE (NEGATIVE); GLUCOSE, URINE (UA) NEGATIVE (NEGATIVE); KETONES,URINE NEGATIVE (NEGATIVE); LEUKOCYTE ESTERASE ,URINE NEGATIVE (NEGATIVE); NITRITE,URINE NEGATIVE (NEGATIVE); PH,URINE 6 (4.5-8.0); PROTEIN,URINE NEGATIVE (NEGATIVE); UROBILINOGEN,URINE 4 MG/DL (0.0-1.0)
[2020-05-04 16:57] LABS: COLOR,URINE YELLOW
[2020-05-04 17:06] LABS: INR 1.1 (0.9-1.1); PARTIAL THROMBOPLASTIN TIME 25 SEC (23-33)
--- NOTE | 2020-05-04 17:06 | Diagnostic Imaging Report ---
Indication: Chest pain Technique: One view of the chest Comparison: 04/28/2020 Findings: Suboptimal inspiration. No definite acute infiltrates, effusions, congestion. The heart size is upper limits of normal. Again demonstrated are cholecystectomy clips. Impression: No acute process
[2020-05-04 17:23] LABS: ANION GAP 7 mmol/L (5-15); BLOOD UREA NITROGEN 17 mg/dL (7-18); CALCIUM 8.8 MG/DL (8.5-10.1); CARBON DIOXIDE 27 MMOL/L (21-32); CHLORIDE 105 MMOL/L (98-107); CREATININE 0.8 MG/DL (0.55-1.30); POTASSIUM 4.6 MMOL/L (3.5-5.1); SODIUM 139 MMOL/L (136-145)
[2020-05-04 17:34] LABS: ALANINE AMINOTRANSFERASE 134 U/L (12-78); ALBUMIN 3.4 G/DL (3.4-5.0); ALBUMIN/GLOBULIN RATIO 1.1 (1.0-2.7); ALKALINE PHOSPHATASE 75 U/L (46-116); ASPARTATE AMINO TRANSFERASE 56 U/L (15-37); BILIRUBIN,TOTAL 2.9 MG/DL (0.2-1.0); CREATINE KINASE 153 U/L (26-308); FERRITIN 135 NG/ML (8-388); LACTATE DEHYDROGENASE 304 U/L (81-234)
[2020-05-04 18:11] LABS: BILIRUBIN,DIRECT 0.3 MG/DL (0.0-0.3)
[2020-05-04] MEDS ORDERED: TYLENOL325 MG ORAL (18:23)
[2020-05-04] MEDS ORDERED: PREDNISONE20 MG ORAL (18:23)
[2020-05-04] MEDS ORDERED: GUAIFENESIN-CO118 M1 ORAL (18:23)
[2020-05-04] MEDS ORDERED: ATROVENT HFA12.9 GM IH (18:23)
[2020-05-04] MEDS ORDERED: Tylenol #3 tab (300mg/30mg) ORAL ONE (18:45)
[2020-05-04 18:55] VITALS: BP 123/73
== END 2020-05-04 18:55 | disposition home or self-care (01) ==
LOC: EMR 16:18
DX: J44.1 Chronic obstructive pulmonary disease with (acute) exacerbation (principal); R07.9 Chest pain, unspecified; R42 Dizziness and giddiness; F17.200 Nicotine dependence, unspecified, uncomplicated; I10 Essential (primary) hypertension; Z90.49 Acquired absence of other specified parts of digestive tract
CPT/HCPCS: 36415; 71045; 80053; 81003; 82248; 82550; 82728; 83605; 83615; 83690; 83735; 83880; 84484; 85025; 85379; 85610; 85730; 86140; 93005; J7512; U0002; Z7502; 99284

== ENCOUNTER 2020-06-26 15:28 | Emergency (ER) | payer MEDICAID ==
[~2020-06-26] VITALS: Ht 162.6 cm; Wt 68.0 kg
[~2020-06-26 15:28] MED LIST changes: +ATROVENT HFA12.9 GM IH; +TYLENOL325 MG ORAL
[2020-06-26] MEDS ORDERED: PERMETHRIN60 GM TOPIC (15:45)
[2020-06-26] MEDS ORDERED: BENADRYL25 MG ORAL (15:45)
--- NOTE | 2020-06-26 15:48 | Emergency Room Report ---
History of Present Illness General Chief Complaint: Skin Rash/Abscess Present Illness HPI Disclaimer: Please note that this report is being documented using DRAGON technology. This can lead to erroneous entry secondary to incorrect interpretation by the dictating instrument. HPI: 65-year-old male presents with itchy rash. Patient states he has severe itching and red rash over his legs and hands. Symptoms present for [address] arted after he was sitting on an old couch. He believes he was bitten by some sort of bugs. Reports severe itching but no pain. Denies bleeding except after he scratches vigorously. Denies skin sloughing, purulence. Denies fever chills. Denies reaction to medications in the past. No recent travel. No other symptoms. PMH: Asthma, COPD, PSH: Reviewed Allergies: Reviewed Social Hx: Reviewed Allergies: Coded Allergies: No Known Allergies (Unverified , 05/13/13) COVID-19 Screening Contact w/high risk pt: Yes Recent Travel to affected area: No Experienced COVID-19 symptoms?: Yes COVID-19 symptoms experienced: Shortness of Breath, Cough, Runny Nose COVID-19 Testing performed DIAL PRINTER: No Nursing Documentation-PMH Hx Hypertension: Yes Hx Neurological Problems: No - Migraine Review of Systems All Other Systems: negative except mentioned in HPI Physical Exam Vital Signs Date Time Temp Pulse Resp B/P (MAP) Pulse Ox O2 Delivery O2 Flow Rate FiO2 06/26/20 15:37 98.1 93 18 112/82 (92) 98 Room Air General: Awake and alert, no acute distress HEENT: NC/AT. EOMI. Resp: Normal work of breathing Skin: Red nodules over the shins bilaterally and in a linear track as well as over the webbing of the thumbs. Mild petechiae from itching. No active bl eeding. Negative Nikolsky. No skin sloughing, no purulence. No evidence of cellulitis or confluent rash. MSK: Normal tone and bulk. Moving all extremities. No obvious deformity. Neuro: Awake and alert. Mentating appropriately Medical Decision Making Diagnostic Impression: Primary Impression: Scabies exposure ER Course This 65-year-old male presenting with rash on his shins and hands. This occurred after sleeping on the couch is concerned over bug infestation. May been exposed to scabies given the appearance of his wounds. No evidence of diffuse rash or infectious process otherwise. Start on permethrin and oral Benadryl for itching. Instructed to return with new or worsening symptoms. Last Vital Signs Date Time Temp Pulse Resp B/P (MAP) Pulse Ox O2 Delivery O2 Flow Rate FiO2 06/26/20 15:37 98.1 93 18 112/82 (92) 98 Room Air Disposition: HOME, SELF-CARE Condition: Stable Scripts Diphenhydramine Hcl* (BENADRYL*) 25 Mg Capsule 25 MG ORAL Q6H PRN for Itching, #30 CAP Prov: Danny Poole MD 06/26/20 Permethrin* (ELIMITE*) 60 Gm Cream..g. 1 APPLIC TOPIC ONCE, #1 TUBE 0 Refills Apply cream from head to toe; leave on for 8-14 hours before washing off with water Prov: Danny Poole MD 06/26/20 Patient Instructions: Pruritus Additional Instructions: Permethrin 5% cream for all family members Apply from neck down Leave on for 8-12hr before washing off Please follow-up with your primary care doctor in the next 1 to 3 days to discuss this emergency department visit and for reevaluation. If you have any new or worsening symptoms please return to the emergency department for reevaluation. Please note that this report is being documented using [employer] technology. This can lead to erroneous entry secondary to incorrect interpretation by the dictating instrument. Danny oPole MD Jun 26, 2020 15:48
[2020-06-26 15:53] VITALS: BP 112/82
== END 2020-06-26 15:56 | disposition home or self-care (01) ==
LOC: EMR 15:42
DX: Z20.7 Contact with and (suspected) exposure to pediculosis, acariasis and other infestations (principal); J44.9 Chronic obstructive pulmonary disease, unspecified; J45.909 Unspecified asthma, uncomplicated; I10 Essential (primary) hypertension
CPT/HCPCS: 99282